=== PATIENT | female | born 1965 | race Caucasian/White ===

== ENCOUNTER 2016-04-04 07:15 | Outpatient (CLI) | payer MEDICARE, MEDICAID ==
[~2016-04-04] VITALS: Ht 166.4 cm; Wt 83.9 kg
[~2016-04-04 07:15] MED LIST: ACHD5005 PO; ADDR10T PO; ALBU17AE23 IH; ALBU17AE23 INH; ALPR1T PO; ALPR1TAB2 PO; ALPR2TAB2 PO; AMIT100T2 PO; AMOX-358 PO; AMPH15TA PO; ARIP5TAB12 PO; ARIP5TAB20 PO; ATOR10TA PO; ATOR80TA PO; BSP10T PO; BUPR300T PO; CEFD300C3 PO; CELE200C PO; CEPH500C PO; CIPR-225 PO; CLCX200C PO; CLOT15CR6 TOP; CPR500T PO; CYCL-97 PO; CYCL10TA9 PO; DEXL30CA2 PO; DEXL60CA PO; DEXT10TA9 PO; DIAZ10TA PO; DIAZ5TAB3; DULO60CA58 PO; DULO60CA6 PO; ELAVIL; FAMO20TA5 PO; FEXO180T PO; FEXO30TA17 PO; FLC100T1 PO; FLEXER; FLUT1DIS26 IH; FURO40TA4 PO; GBPN100C PO; GBPN600T PO; HYDR-2962 PO; HYDR-34 PO; HYDR-3720 PO; HYDR-3820 PO; HYDR1TAB3 PO; IBUP-1780 PO; LACT10SO63 PO; LD5PT; LD5PT TOP; LEVO125T6 PO; LEVO137T24 PO; LEVO200T6 PO; LEVO500T69 PO; LIPA1CAP67 PO; LORA10TA2 PO; LUBI24CA PO; LVT.15T PO; MECL-106 PO; MECL25TA56 PO; METH12DI SQ; METH4TAB PO; METO-354 PO; METO5TAB79 PO; METR500T21 PO; MTF500T PO; MTL5T PO; NF-ESOM40C PO; NF-SOLIF5T PO; NITR-65 PO; ONDA8TAB13 PO; ONDA8TAB9 PO; ONDAN4ODT PO; ORPH100T PO; OXYC10TA63 PO; PHEN-640 PO; PNT40TEC PO; POLY119P4 PO; POLY17PO23 PO; POTA10CA43 PO; PRD20T PO; PREG150C PO; PRM25T PO; SCR1T1 PO; SENN-1 PO; SUCR1TAB36 PO; SULF1TAB35 PO; SUMA100T2 PO; SUMA100T3 PO; TRAM50TA2 PO; TRAZ100T92 PO; VITAMIN D PO; ZLP10T PO
--- OUTSIDE RECORDS SUMMARY | 2016-04-04 07:19 | XMS REPORT | Continuity of Care Document ---
Author Author [facility] Organization [facility] Address Unknown Phone Unavailable Care Team Providers Care Soccer Coach Name Role Phone Jocelin Bean PCP [phone] Source Comments Some departments are not documenting in the electronic medical record. If you do not see the information that you expected, contact Release of Information in the Health Information Management department at [phone] for further assistance in locating additional records.[facility] Active Allergies and Adverse Reactions Allergen Noted Date Severity Reactions Comments Codeine 01/30/2010 UNKNOWN Meprozine 01/30/2010 AGITATION Current Medications Prescription Sig. Disp. Refills Start End Date Status Date levothyroxine (SYNTHROID) Take 137 mg by mouth Active 137 mcg PO tablet Daily. eszopiclone (LUNESTA) 3 Take 3 mg by mouth At Active mg PO tablet Bedtime Daily. metoclopramide (REGLAN) Take 10 mg by mouth Four Active 10 mg PO tablet Times Daily. lubiprostone (AMITIZA) 24 Take 24 mcg by mouth Active mcg PO Cap Twice Daily With Meals. cyclobenzaprine Take 10 mg by mouth Three Active (FLEXERIL) 10 mg PO Times Daily as needed. tablet alprazolam (XANAX) 1 mg Take 1 mg by mouth Daily. Active PO tablet fexofenadine(+) (ROD) Take 180 mg by mouth Active 180 mg PO tablet Twice Daily. buPROPion XL (+) Take 300 mg by mouth Active (WELLBUTRIN XL) 300 mg PO Every Morning. tablet Hydrocodone-Acetaminophen Take 1 Tab by mouth. Active 10-660 mg PO Tab Every 4-6 hours as needed amitriptyline (ELAVIL) Take 100 mg by mouth At Active 100 mg PO tablet Bedtime Daily. lactulose(+) (KRISTALOSE) Take 10 g by mouth Three Active 10 gram PO packet Times Daily. Polyoxyethylene Ether Use as directed. Active MISC Powd lidocaine (LIDODERM) 5 % Apply 1 Patch to top of Active TP topical patch skin as directed Every 24 Hours. albuterol 0.5% (VENTOLIN) Inhale 2.5 mg solution as Active 5 mg/mL IN nebulizer directed Every 4 Hours as solution needed. methylPREDNISolone Take 4 mg by mouth Once. Active (MEDROL) 4 mg PO Tab electrolyte GUT PEG Take as directed for 1 Bottle 0 04/20/19 Active (NULYTELY) 420 gram solr colon prep split dose. 15 oral solution Active Problems Not on file Social History Tobacco Use Types Packs/Day Years Used Date Current Every Day Smoker Cigarettes 1 26 Alcohol Use Drinks/Week oz/Week Comments No Plan of Care Health Maintenance Due Date Last Done Comments Physical (Comprehensive) 09/17/1970 Exam Pertussis Vaccine 09/17/1974 Tetanus Vaccine 09/17/1980 Cervical Cancer Screening 09/17/1984 Breast Cancer Screening 2003 Influenza Vaccine 11/29/2015 Colorectal Cancer 12/20/2019 12/19/2009 Screening Results from Last 3 Months Not on file
[2016-04-04] MEDS ORDERED: LIDOCAINE 1% INJ 20 ML (XYLOCAINE) VIAL ONE (07:21)
[2016-04-04] MEDS ORDERED: TRIAMCINOLONE ACET (KENALOG-40) 40 MG/ML 1 ML VIAL ONE ×2 (07:21→07:59)
[2016-04-04] MEDS ORDERED: BUPIVACAINE 0.25% 30 ML (SENSORCAINE) VIAL ONE (07:21)
[2016-04-04 07:38] VITALS: BP 108/82
[2016-04-04 08:25] VITALS: BP 103/76
--- NOTE | 2016-04-04 13:22 | Pain Medicine-Procedure ---
Procedure Pre-Op/Post-Op Diagnosis Diagnosis: disc disorder with radiculopathy, lumbar Indications for Operation Low back pain and hip pain Attending Surgeon Tyrell Procedure Date of Service: Apr 04, 2016 PROCEDURE: Caudal Epidural Steroid Injection with catheter and bilateral sacroiliac joint injections under Flouroscopic Guidance PROCEDURE NOTE: After obtaining written informed consent patient was taken to the procedure room. Vital signs were monitored through out the procedure. A time out was performed. The patient was placed in the prone position on fluoroscopy table. The lower back above the caudal space was prepped with chloraprep and draped in the usual sterile fashion. The skin over the sacral hiatus was identified under fluoroscopic guidance and infiltrated with 1% lidocaine for local anesthesia via 25 gauge needle. An 17-gauge epimed needle was used to access the epidural space under fluoroscopic guidance and was then advanced into the epidural space under fluoroscopic guidance in the AP view. The epimed catheter was then advanced under flourospopic guidance to the L5-S1 interspace. There was no paresthesia with catheter placement. After negative aspiration 1 cc of the contrast dye was injected through the needle with good spread of the medication in the epidural space at the appropriate levels. Again, after negative aspiration, 80 mg of kenalog with 2 cc of 0.25% marcaine and 2 mL's of preservative free normal saline was injected. There was no evidence of CSF, paresthesia or heme during the procedure. The catheter and needle were withdrawn as a unit and the tip was noted to be intact upon removal. Skin was cleaned and a sterile dressing was applied. Attention was then directed to the right sacroiliac joint which was identified under fluoroscopic guidance. The skin overlying the posterior inferior one third of the sacroiliac joint was anesthetized with 1 percent lidocaine and a 22 -gauge 3-1/2 inch needle was inserted and advanced into the joint. Following negative aspiration a total of 20 mg of Kenalog and 2 mL of 0.25 percent bupivacaine was injected. Needle was flushed with lidocaine and removed. Attention was then directed to the left sacroiliac joint were the same procedure was performed and the same solution was injected. Sterile bandages were applied. Patient tolerated the procedures well with no apparent complications. Complications None FLORIN JUNG MD Apr 04, 2016 1:22 pm
== END 2016-04-04 08:27 ==
LOC: CARD 07:15
PROVIDERS: ATTEND Pain Medicine Pain Medicine
DX: M53.3 Sacrococcygeal disorders, not elsewhere classified (principal); M51.16 Intervertebral disc disorders with radiculopathy, lumbar region; G89.4 Chronic pain syndrome
CPT/HCPCS: 27096; 62323

== ENCOUNTER → 2016-07-08 | Outpatient (CLI) | payer MEDICARE, MEDICAID ==
[2016-07-08 14:26] LABS: THYROID STIMULATING HORMONE 29.23 UIU/ML (0.35-4.94)
== END ==
LOC: LAB 13:26
PROVIDERS: ATTEND Family Medicine
DX: E03.9 Hypothyroidism, unspecified (principal)
CPT/HCPCS: 36415; 84439; 84443

== ENCOUNTER 2016-11-10 12:08 | Observation (INO) | payer MEDICARE, MEDICAID ==
[~2016-11-10] VITALS: Ht 165.1 cm; Wt 87.2 kg
[2016-11-10 12:15] VITALS: BP 124/81
--- OUTSIDE RECORDS SUMMARY | 2016-11-10 12:55 | XMS REPORT | Clinical Summary ---
Author Author [facility] Organization [facility] Address Unknown Phone Unavailable Care Team Providers Care Web Analytics Developer Name Role Phone PCP Unavailable Source Comments Some departments are not documenting in the electronic medical record. If you do not see the information that you expected, contact Release of Information in the Health Information Management department at [phone] for further assistance in locating additional records.[facility] Allergies Active Allergy Reactions Severity Noted Date Comments Codeine UNKNOWN 01/30/2010 Meperidine-Promethazine AGITATION 01/30/2010 Current Medications Prescription Sig. Disp. Refills Start [...] 26 Alcohol Use Drinks/Week oz/Week Comments No Sex Assigned at Date Recorded Not on file Last Filed Vital Signs Not on file Plan of Treatment Health Maintenance Due Date Last Done Comments HEPATITIS C SCREENING 1963 PHYSICAL (COMPREHENSIVE) 09/17/1970 EXAM PERTUSSIS VACCINE 09/17/1974 TETANUS VACCINE 09/17/1980 CERVICAL CANCER SCREENING 09/17/1993 BREAST CANCER SCREENING 2003 INFLUENZA VACCINE 11/28/2016 COLORECTAL CANCER 12/20/2019 12/19/2009 SCREENING Results Not on filefrom Last 3 Months
--- OUTSIDE RECORDS SUMMARY | 2016-11-10 12:59 | XMS REPORT ---
Author Author FLORIN GRAHAM Organization [employer] Address Unknown Phone Unavailable Care Team Providers Care Transfer Worker Name Role Phone FLORIN GRAHAM CP Unavailable Allergies, Adverse Reactions, Alerts Substance Reaction Event Type Codeine Sulfate Info Not Available Drug Allergy Problems Problem Type Condition Code Onset Dates Condition Status Assessment Dental examination Z01.20 Active Medications Medication Code System Code Instructions Start Date End Date Status Dosage Creon [facility] [address]-35 not defined protonix NDC 0 not defined Alprazolam [facility] [address]-57 [place] [address]-41 not defined Levothroid NDC 0 not defined Abilify [facility] [address]-30 not defined Hydrocod Polst-Chlorphen Polst NDC 0 not defined Vit D-Vit E-Safflower Oil NDC 0 not defined Ondansetron [facility] [address]-86 [place] [address]-69 [place] [address]-59 not defined Procedures Procedure Coding System Code Date RESIN COMPOS - 3 SURFACES ANTERIOR CPT-4 D2332 Jan 18, 2015 PULP CAP - DIRECT CPT-4 D3110 Jan 18, 2015 RESIN COMPOS - 3 SURFACES ANTERIOR CPT-4 D2332 Jan 18, 2015 Vital Signs Date/Time: Jan 18, 2015 Blood Pressure Diastolic 75 mmHg Blood Pressure Systolic 110 mmHg Results No Known Results Summary Purpose [employer] Submission
--- OUTSIDE RECORDS SUMMARY | 2016-11-10 12:59 | XMS REPORT ---
Author Author FLORIN GRAHAM Organization [employer] Address Unknown Phone Unavailable Care Team Providers Care Scientific Laboratory Supervisor Name Role Phone FLORIN GRAHAM CP Unavailable Allergies, Adverse Reactions, Alerts Substance Reaction Event Type Codeine Sulfate Info Not Available Drug Allergy Problems Problem Type Condition Code Onset Dates Condition Status Assessment Dental examination Z01.20 Active Medications Medication Code System Code Instructions Start Date End Date Status Dosage Levothroid NDC 0 [place] [address]-22 not defined Hydrocod Polst-Chlorphen Polst NDC 0 [place] [address]-43 not defined protonix NDC 0 not defined Abilify [facility] [address]-23 [place] [address]-01 not defined Vit D-Vit E-Safflower Oil NDC 0 not defined Mecasermin [facility] [address]-26 [place] [address]-09 [place] [address]-41 not defined Procedures Procedure Coding System Code Date RESIN COMPOS - 3 SURFACES ANTERIOR CPT-4 D2332 October 10, 2015 INTRAORL-PERIAPICAL 1 FILM 80164 CPT-4 D0220 October 10, 2015 Vital Signs Date/Time: October 10, 2015 Blood Pressure Diastolic 66 mmHg Blood Pressure Systolic 98 mmHg Results No Known Results Summary Purpose [employer] Submission
--- OUTSIDE RECORDS SUMMARY | 2016-11-10 12:59 | XMS REPORT ---
Author Author FLORIN GRAHAM Organization [employer] Address Unknown Phone Unavailable Care Team Providers Care Machine Binding Folder Name Role Phone FLORIN GRAHAM CP Unavailable Allergies No Known Allergies Problems Problem Type Condition ICD-9 Code Onset Dates Condition Status Assessment Dental examination V72.2 Active Medications No Known Medications Procedures Procedure Coding System Code Date Billing Notes on claim CPT-4 EC109 September 26, 2014 Results No Known Results Summary Purpose [employer] Submission
--- OUTSIDE RECORDS SUMMARY | 2016-11-10 13:00 | XMS REPORT ---
Author Author JAEL ARDON Organization [employer] Address Unknown Phone Unavailable Care Team Providers Care Termite Control Technician Name Role Phone JAEL ARDON CP Unavailable Allergies No Known Allergies Problems No Known Problems Medications No Known Medications Results No Known Results Summary Purpose [employer] Submission
--- OUTSIDE RECORDS SUMMARY | 2016-11-10 13:02 | XMS REPORT ---
Author Author JAEL ARDON [facility] Address Unknown Care Team Providers Care Unisaw Operator Name Role Phone JAEL ARDON Unavailable PROBLEMS Type Condition ICD9-CM Code COT35-MG Code Onset Dates Condition Status SNOMED Code Assessment Dental examination Z01.20 13 Nov, 2015 Active [id number] ALLERGIES Unknown Allergies SOCIAL HISTORY No smoking Hx information available PLAN OF CARE VITAL SIGNS MEDICATIONS Unknown Medications RESULTS No Results PROCEDURES Procedure Date Ordered Related Diagnosis Body Site Billing Notes on claim Dec 11, 2015 IMMUNIZATIONS No Known Immunizations
[2016-11-10 13:44] LABS: BASOPHILS % (AUTO) 0 % (0-10); EOSINOPHILS % (AUTO) 0 % (0-10); LYMPHOCYTES # (AUTO) 2.2 X 10^3 (1.0-4.0); LYMPHOCYTES % (AUTO) 23 % (12-44); MEAN CORPUSCULAR HEMOGLOBIN 29 PG (25-34); MEAN CORPUSCULAR HGB CONC 35 G/DL (32-36); MEAN CORPUSCULAR VOLUME 83 FL (80-99); MONOCYTES # (AUTO) 0.5 X 10^3 (0.0-1.0); MONOCYTES % (AUTO) 5 % (0-12); NEUTROPHILS # (AUTO) 6.8 X 10^3 (1.8-7.8); NEUTROPHILS % (AUTO) 71 % (42-75); PLATELET COUNT 243 10^3/uL (130-400); RED BLOOD COUNT 5.74 10^6/uL (4.35-5.85); RED CELL DISTRIBUTION WIDTH 13.1 % (10.0-14.5); WHITE BLOOD COUNT 9.5 10^3/uL (4.3-11.0)
[2016-11-10] MEDS ORDERED: ONDANSETRON 4 MG/2 ML (SDV) Z0FRAN ONE (13:54)
[2016-11-10] MEDS: NS IV 1000 ML 1,000 ML IV SCH ×2 (14:04→20:49)
[2016-11-10] MEDS: ONDANSETRON 4 MG/2 ML (SDV) Z0FRAN IV PRN ×2 (14:05→20:49)
[2016-11-10 14:09] LABS: ALANINE AMINOTRANSFERASE 10 U/L (0-55); ALBUMIN 3.9 GM/DL (3.2-4.5); AMYLASE 38 U/L (25-125); ANION GAP 17 MMOL/L (5-14); ASPARTATE AMINO TRANSFERASE 11 U/L (5-34); BILIRUBIN,TOTAL 0.4 MG/DL (0.1-1.0); BLOOD UREA NITROGEN 8 MG/DL (7-18); BUN/CREATININE RATIO 10; CALCIUM 9.4 MG/DL (8.5-10.1); CARBON DIOXIDE 14 MMOL/L (21-32); CHLORIDE 99 MMOL/L (98-107); CREATININE SERUM 0.83 MG/DL (0.60-1.30); GFR ESTIMATED > 60; GLUCOSE 313 MG/DL (70-105); LIPASE 18 U/L (8-78); MAGNESIUM 1.4 MG/DL (1.8-2.4); POTASSIUM 3.6 MMOL/L (3.6-5.0); SODIUM 130 MMOL/L (135-145); TOTAL PROTEIN 7.1 GM/DL (6.4-8.2)
[2016-11-10 14:13] LABS: BILIRUBIN,URINE NEGATIVE (NEGATIVE); KETONES,URINE 4+ (NEGATIVE); LEUKOCYTE ESTERASE ,URINE NEGATIVE (NEGATIVE); NITRITE,URINE NEGATIVE (NEGATIVE); PH,URINE 5 (5-9); PROTEIN,URINE 2+ (NEGATIVE); UROBILINOGEN,URINE NORMAL (NORMAL)
[2016-11-10] MEDS ORDERED: CATHETER FLUSH 10 ML SYR IV PRN (14:15)
[2016-11-10] MEDS: inSUlin (REGULAR) HUMAN 1 UNIT/0.01 ML (CHARGE PER UNIT) SC SCH ×3 (14:19→20:50)
[2016-11-10] MEDS ORDERED: NALO25TA PO (14:25)
[2016-11-10] MEDS ORDERED: AMPH20CA PO (14:25)
[2016-11-10] MEDS ORDERED: DEXL60CA PO (14:25)
[2016-11-10] MEDS ORDERED: CYCL10TA9 PO (14:25)
[2016-11-10] MEDS ORDERED: BUSP10TA95 PO (14:25)
[2016-11-10] MEDS ORDERED: TRAZ150T72 PO (14:25)
[2016-11-10 14:30] LABS: THYROID STIMULATING HORMONE 0.04 UIU/ML (0.35-4.94)
[2016-11-10 16:20] VITALS: BP 121/84
[2016-11-10] MEDS ORDERED: KCL 20 MEQ TAB (K-DUR) PO NR (17:30)
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
[2016-11-10] MEDS: MAGNESIUM 1 GM/100 ML IVPB 100 ML IV SCH ×2 (17:51→19:39)
[2016-11-10] MEDS: HYDROcodone/APAP 10 MG/325 MG (LORTAB) TAB PO PRN ×2 (17:59→20:50)
[2016-11-10 19:55] VITALS: BP 110/74
[2016-11-10] MEDS: busPIRone 10 MG (BUSPAR) TAB PO SCH (20:49)
[2016-11-10] MEDS: traZODone 150 MG (DESYREL) TABLET PO SCH (20:49)
[2016-11-11] VITALS (7 sets, daily range): BP systolic 94–114; BP diastolic 54–77
[2016-11-11] MEDS: ONDANSETRON 4 MG/2 ML (SDV) Z0FRAN IV PRN ×3 (02:29→21:06)
[2016-11-11] MEDS: HYDROcodone/APAP 10 MG/325 MG (LORTAB) TAB PO PRN ×2 (02:29→09:42)
[2016-11-11] MEDS: NS IV 1000 ML 1,000 ML IV SCH ×3 (02:46→17:57)
[2016-11-11 06:18] LABS: ANION GAP 12 MMOL/L (5-14); BLOOD UREA NITROGEN 10 MG/DL (7-18); BUN/CREATININE RATIO 16; CALCIUM 8.3 MG/DL (8.5-10.1); CARBON DIOXIDE 16 MMOL/L (21-32); CHLORIDE 106 MMOL/L (98-107); CREATININE SERUM 0.64 MG/DL (0.60-1.30); GFR ESTIMATED > 60; GLUCOSE 254 MG/DL (70-105); MAGNESIUM 1.7 MG/DL (1.8-2.4); POTASSIUM 3.7 MMOL/L (3.6-5.0); SODIUM 134 MMOL/L (135-145)
[2016-11-11] MEDS: LEVOTHYROXINE 150 MCG (LEVOTHROID) TAB PO SCH (06:19)
[2016-11-11] MEDS: KCL 20 MEQ TAB (K-DUR) PO SCH (06:19)
[2016-11-11] MEDS: PANTOPRAZOLE 40 MG (PROTONIX) TAB PO SCH (06:19)
[2016-11-11] MEDS: LIPASE/AMYLASE/PROTEASE (PANCRELIPASE) 5,000 UNITS CAP PO SCH ×3 (06:20→17:19)
[2016-11-11] MEDS: inSUlin (REGULAR) HUMAN 1 UNIT/0.01 ML (CHARGE PER UNIT) SC SCH ×4 (06:20→21:02)
[2016-11-11] MEDS: busPIRone 10 MG (BUSPAR) TAB PO SCH ×2 (08:24→21:02)
[2016-11-11] MEDS: ARIPIPRAZOLE 10 MG (ABILIFY) TAB PO SCH (08:25)
[2016-11-11] MEDS: DULoxetine 30 MG (CYMBALTA) CAP PO SCH (08:25)
[2016-11-11] MEDS ORDERED: GLIMEPIRIDE 1 MG (AMARYL) TAB PO NR (08:45)
[2016-11-11] MEDS ORDERED: NON-FORMULARY MEDICATION 1 EA EA (Dexlansoprazole (Dexilant) 60 MG) PO SCH (09:00)
[2016-11-11] MEDS ORDERED: NON-FORMULARY MEDICATION 1 EA EA (Duloxetine HCl 60 MG) PO SCH (09:00)
[2016-11-11] MEDS ORDERED: NON-FORMULARY MEDICATION 1 EA EA (Aripiprazole 5 MG) PO SCH (09:00)
[2016-11-11] MEDS: metFORMIN XR 500 MG (GLUCOPHAGE XR) TAB PO SCH ×2 (09:42→17:08)
[2016-11-11] MEDS: MAGNESIUM 1 GM/100 ML IVPB 100 ML IV SCH ×2 (09:43→10:49)
[2016-11-11] MEDS: Naloxegol Oxalate (Movantik) 25 MG) PO SCH ×2 (21:01→21:03)
[2016-11-11] MEDS: traZODone 150 MG (DESYREL) TABLET PO SCH (21:02)
[2016-11-12] MEDS: NS IV 1000 ML 1,000 ML IV SCH ×3 (00:52→06:16)
[2016-11-12 03:40] VITALS: BP 106/60
[2016-11-12] MEDS: LIPASE/AMYLASE/PROTEASE (PANCRELIPASE) 5,000 UNITS CAP PO SCH ×2 (06:13→11:37)
[2016-11-12] MEDS: LEVOTHYROXINE 150 MCG (LEVOTHROID) TAB PO SCH (06:13)
[2016-11-12] MEDS: metFORMIN XR 500 MG (GLUCOPHAGE XR) TAB PO SCH (06:13)
[2016-11-12] MEDS: inSUlin (REGULAR) HUMAN 1 UNIT/0.01 ML (CHARGE PER UNIT) SC SCH ×2 (06:13→11:37)
[2016-11-12] MEDS: KCL 20 MEQ TAB (K-DUR) PO SCH (06:13)
[2016-11-12] MEDS ORDERED: GLIMEPIRIDE 1 MG (AMARYL) TAB PO SCH (06:30)
[2016-11-12] MEDS: PANTOPRAZOLE 40 MG (PROTONIX) TAB PO SCH (06:39)
[2016-11-12 07:27] LABS: ANION GAP 11 MMOL/L (5-14); BLOOD UREA NITROGEN 5 MG/DL (7-18); BUN/CREATININE RATIO 9; CALCIUM 8.4 MG/DL (8.5-10.1); CARBON DIOXIDE 20 MMOL/L (21-32); CHLORIDE 108 MMOL/L (98-107); CREATININE SERUM 0.58 MG/DL (0.60-1.30); GFR ESTIMATED > 60; GLUCOSE 192 MG/DL (70-105); POTASSIUM 3.4 MMOL/L (3.6-5.0); SODIUM 139 MMOL/L (135-145)
[2016-11-12 08:00] VITALS: BP 95/64
[2016-11-12] MEDS: busPIRone 10 MG (BUSPAR) TAB PO SCH (09:36)
[2016-11-12] MEDS: DULoxetine 30 MG (CYMBALTA) CAP PO SCH (09:37)
[2016-11-12] MEDS: ARIPIPRAZOLE 10 MG (ABILIFY) TAB PO SCH (09:37)
[2016-11-12 12:00] VITALS: BP 124/86
[2016-11-12] MEDS ORDERED: METF500T8 PO (12:52)
[2016-11-12] MEDS ORDERED: GLMP1T PO (12:52)
[2016-11-12] MEDS ORDERED: LEVO175T5 PO (12:52)
[2016-11-12] MEDS ORDERED: [UNRECOGNIZED DRUG - CODE] MC (12:57)
[2016-11-12] MEDS ORDERED: BLOO-367 MC (12:59)
--- NOTE | 2016-11-12 13:00 | Discharge Inst-Simple/Standard ---
Discharge Inst-Standard Discharge Medications New, Converted or Re-Newed RX: Transmitted to Pharmacy Patient Instructions/Follow Up Plan of Care/Instructions/FU: Fwup in 2 weeks Activity as Tolerated: Yes Discharge Diet: ADA Diet Planned Outpatient Orders/Ref. Diabetes Education RAZA HARRIS DO Nov 12, 2016 12:59
[2016-11-12 14:51] VITALS: BP 124/86
== END 2016-11-12 13:40 | disposition home or self-care (01) ==
LOC: INTOOBSV 12:15 → 4TH 12:15
PROVIDERS: ADMIT Family Medicine; ATTEND Family Medicine
DX: E11.65 Type 2 diabetes mellitus with hyperglycemia (principal); E87.1 Hypo-osmolality and hyponatremia; E83.42 Hypomagnesemia; E87.2 Acidosis; R00.0 Tachycardia, unspecified; E03.9 Hypothyroidism, unspecified; J44.9 Chronic obstructive pulmonary disease, unspecified; F17.210 Nicotine dependence, cigarettes, uncomplicated; Z79.899 Other long term (current) drug therapy
CPT/HCPCS: 36415; 80048; 80053; 81000; 82150; 82962; 83036; 83690; 83735; 84439; 84443; 85025; 99211; G0378

== ENCOUNTER 2016-12-08 17:43 | Outpatient (RCR) | payer MEDICARE, MEDICAID ==
[~2016-12-08 17:43] MED LIST changes: +AMPH20CA PO; +BLOO-367 MC; +BUSP10TA95 PO; +GLMP1T PO; +LEVO175T5 PO; +METF500T8 PO; +NALO25TA PO; +TRAZ150T72 PO; +[UNRECOGNIZED DRUG - CODE] MC
== END 2016-12-27 02:34 | disposition home or self-care (01) ==
LOC: DSME 17:43
PROVIDERS: ATTEND Family Medicine
DX: E11.9 Type 2 diabetes mellitus without complications (principal)

== ENCOUNTER 2017-02-22 10:02 | Emergency (ER) | payer MEDICARE, MEDICAID ==
[~2017-02-22] VITALS: Ht 165.1 cm; Wt 68.0 kg
--- OUTSIDE RECORDS SUMMARY | 2017-02-22 10:08 | XMS REPORT | Clinical Summary ---
Author Author [facility] Organization [facility] Address Unknown Phone Unavailable Care Team Providers Care Marketing Strategist Name Role Phone PCP Unavailable Source Comments Some departments are not documenting in the electronic medical record. If you do not see the information that you expected, contact Release of Information in the Health Information Management department at [phone] for further assistance in locating additional records.[facility] Allergies Active Allergy Reactions Severity Noted Date [...] 09/17/1993 BREAST CANCER SCREENING 2003 INFLUENZA VACCINE 10/28/2016 COLORECTAL CANCER 12/20/2019 12/19/2009 SCREENING Results Not on filefrom Last 3 Months
--- OUTSIDE RECORDS SUMMARY | 2017-02-22 10:12 | XMS REPORT ---
Author Author JAEL ARDON [facility] Address Unknown Care Team Providers Care System Configuration Specialist Name Role Phone JAEL ARDON Unavailable PROBLEMS Type Condition ICD9-CM Code [id number] Code Onset Dates Condition Status SNOMED Code Problem Encounter for dental examination Z01.20 Active [id number] ALLERGIES Unknown Allergies SOCIAL HISTORY No smoking Hx information available PLAN OF CARE VITAL SIGNS MEDICATIONS Unknown Medications RESULTS No Results PROCEDURES Procedure Date Ordered Related Diagnosis Body Site Billing Notes on claim Feb 26, 2016 IMMUNIZATIONS No Known Immunizations
--- OUTSIDE RECORDS SUMMARY | 2017-02-22 10:13 | XMS REPORT ---
Author Author ANNABEL CUMM[facility] Organization [facility] Address [address] [place] [address] Care Team Providers Care Media Technician Name Role Phone EMILIANO ANNABEL Unavailable PROBLEMS Type Condition ICD9-CM Code FNV26-ML Code Onset Dates Condition Status SNOMED Code Problem Encounter for dental examination Z01.20 Active [id number] ALLERGIES Substance Reaction Event Type Date Status Codeine Sulfate Unknown Drug Allergy Apr, Active compazine Unknown Non Drug Allergy Apr, Active SOCIAL HISTORY Never Assessed PLAN OF CARE Activity Details Follow Up First Available Reason:Restorative 1 hour VITAL SIGNS Blood pressure systolic 96 mmHg 2016-05-21 Blood pressure diastolic 67 mmHg 2016-05-21 MEDICATIONS Medication Instructions Dosage Frequency Start Date End Date Duration Status Abilify Active Cymbalta Active Creon Active Trazodone HCl Active Dexilant 60 MG Orally Once a day 1 capsule 24h Active BuSpar Active Levothroid Active Hydrocod Polst-Chlorphen Polst Active Adderall 20 MG Orally Once a day 1 tablet in the morning 24h Active Vit D-Vit E-Safflower Oil Active Alprazolam Active RESULTS No Results PROCEDURES Procedure Date Ordered Result Body Site TOPICAL FLUORIDE VARNISH May 21, 2016 PERIODIC ORAL EXAMINATION May 21, 2016 INTRAORL-PERIAPICAL 1 FILM 11533 May 21, 2016 BITEWINGS - TWO FILMS May 21, 2016 BITEWING - SINGLE FILM May 21, 2016 PROPHYLAXIS - ADULT May 21, 2016 INTRAORL-PERIAPICAL EA ADD FILM May 21, 2016 INTRAORL-PERIAPICAL EA ADD FILM May 21, 2016 INTRAORL-PERIAPICAL EA ADD FILM May 21, 2016 INTRAORL-PERIAPICAL EA ADD FILM May 21, 2016 IMMUNIZATIONS No Known Immunizations MEDICAL (GENERAL) HISTORY Type Description Date Medical History COPD Medical History Thyroid Medical History Arthritis Medical History Back trouble Medical History Head neck back trouble Surgical History Appendix Surgical History Back Surgical History Sinus Surgical History Wrist Surgical History Partial Hysterectomy Surgical History tosils Surgical History gallbladder Surgical History kidney stone Hospitalization History Hospitalization for surgery only
--- OUTSIDE RECORDS SUMMARY | 2017-02-22 10:14 | XMS REPORT ---
Author Author SUSSY Rico Organization [facility] Address Unknown Care Team Providers Care Dynamite Cartridge Crimper Name Role Phone SUSSY Rico Unavailable PROBLEMS Type Condition ICD9-CM Code [id number] Code Onset Dates Condition Status SNOMED Code Problem Encounter for dental examination Z01.20 Active 101930269 ALLERGIES Substance Reaction Event Type Date Status Codeine Sulfate Unknown Drug Allergy Apr, Active compazine Unknown Non Drug Allergy Apr, Active SOCIAL HISTORY Never Assessed PLAN OF CARE Activity Details Follow Up prn Reason:usha/hygiene VITAL SIGNS Blood pressure systolic 118 mmHg 2016-05-21 Blood pressure diastolic 85 mmHg 2016-05-21 MEDICATIONS Medication Instructions Dosage Frequency Start Date End Date Duration Status Cymbalta Active Creon Active BuSpar Active Alprazolam Active Trazodone HCl Active Levothroid Active Hydrocod Polst-Chlorphen Polst Active Adrenal Active Abilify Active Vit D-Vit E-Safflower Oil Active RESULTS No Results PROCEDURES Procedure Date Ordered Result Body Site LTD ORAL EVALUATION - PROBLEM FOCUS May 21, 2016 INTRAORL-PERIAPICAL 1 FILM [id number] May 21, 2016 BITEWING - SINGLE FILM May 21, 2016 INTRAORL-PERIAPICAL EA ADD [...]
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
--- NOTE | 2017-02-22 11:23 | Diagnostic Imaging Report ---
INDICATION: Right wrist pain after a fall 2 views of the right wrist shows no fracture, dislocation or other acute bony abnormality. IMPRESSION: No acute abnormality is seen. Dictated by: Dictated on workstation # [id number]
[2017-02-22 11:45] VITALS: BP 132/87
== END 2017-02-22 11:45 | disposition home or self-care (01) ==
LOC: EDUNIT# 10:02 → ER 10:04
DX: S60.211A Contusion of right wrist, initial encounter (principal); F32.9 Major depressive disorder, single episode, unspecified; F41.9 Anxiety disorder, unspecified; E03.9 Hypothyroidism, unspecified; J44.9 Chronic obstructive pulmonary disease, unspecified; E11.40 Type 2 diabetes mellitus with diabetic neuropathy, unspecified; K21.9 Gastro-esophageal reflux disease without esophagitis; Z79.84 Long term (current) use of oral hypoglycemic drugs; Z90.710 Acquired absence of both cervix and uterus; Z87.442 Personal history of urinary calculi; Z85.41 Personal history of malignant neoplasm of cervix uteri; Z90.49 Acquired absence of other specified parts of digestive tract; Z77.22 Contact with and (suspected) exposure to environmental tobacco smoke (acute) (chronic); W01.0XXA Fall on same level from slipping, tripping and stumbling without subsequent striking against object, initial encounter; Z87.828 Personal history of other (healed) physical injury and trauma
CPT/HCPCS: 73100; 99282

== ENCOUNTER 2017-04-26 18:26 | Emergency (ER) | payer MEDICARE, MEDICAID ==
[~2017-04-26] VITALS: Ht 165.1 cm; Wt 65.8 kg
--- OUTSIDE RECORDS SUMMARY | 2017-04-26 18:32 | XMS REPORT | Clinical Summary ---
Author Author [facility] Organization [facility] Address Unknown Phone Unavailable Care Team Providers Care Remote Sensing Engineer Name Role Phone Jocelin Bean MD PCP Jorge Christopher Unavailable Unavailable Eloise Rand Unavailable Unavailable Source Comments Some departments are not documenting in the electronic medical record. If you do not see the information that you expected, contact Release of Information in the Health Information Management department at [phone] for further assistance in locating additional records.[facility] Allergies Active Allergy Reactions Severity Noted [...]
--- OUTSIDE RECORDS SUMMARY | 2017-04-26 18:39 | XMS REPORT | Continuity of Care Document ---
Author Author [facility] Organization [facility] Address Unknown Phone Unavailable Allergies Active Description Code Type Severity Reaction Onset Reported/Identified Relationship to Patient Clinical Status Yes prochlorperazine [id number] Drug Allergy Mild ANXIETY 12/12/2008 Yes codeine [id number] Drug Allergy Mild ABDOMINAL PAIN 12/26/2010 Medications There is no data. Problems Date Dx Coded Attending Type Code Diagnosis Diagnosed By RAZA HARRIS DO Ot E11.9 TYPE 2 DIABETES MELLITUS WITHOUT COMPLIC 02/27/1444 RAZA HARRIS DO Ot M51.86 OTHER INTERVERTEBRAL DISC DISORDERS, LUM 03/21/2010 Ot 724.5 03/21/2010 Ot 789.00 03/21/2010 Ot 791.9 06/24/2010 Ot 722.91 DISC DIS NEC /NOS-CERV 06/24/2010 Ot V57.1 PHYSICAL THERAPY NEC 07/12/2010 Ot 244.9 HYPOTHYROIDISM NOS 07/12/2010 Ot 276.1 HYPOSMOLALITY 07/12/2010 Ot 276.8 HYPOPOTASSEMIA 07/12/2010 Ot 300.00 ANXIETY STATE NOS 07/12/2010 Ot 305.1 TOBACCO USE DISORDER 07/12/2010 Ot 314.00 ATTN DEFIC NONHYPERACT 07/12/2010 Ot 338.29 OTHER CHRONIC PAIN 07/12/2010 Ot 401.9 HYPERTENSION NOS 07/12/2010 Ot 558.9 NONINF GASTROENTERIT NEC 07/12/2010 Ot 599.0 URIN TRACT INFECTION NOS 07/12/2010 Ot 714.0 RHEUMATOID ARTHRITIS 07/12/2010 Ot 724.2 LUMBAGO 07/12/2010 Ot V58.69 OTH MED,LT, CURRENT USE 11/11/2010 Ot 564.00 UNSPEC CONSTIPATION 11/11/2010 Ot 789.09 ABDOMINAL PAIN, OTHER SPECIFIED SITE 12/27/2010 Ot 244.9 HYPOTHYROIDISM NOS 12/27/2010 Ot 276.51 DEHYDRATION 12/27/2010 Ot 276.8 HYPOPOTASSEMIA 12/27/2010 Ot 300.4 DYSTHYMIC DISORDER 12/27/2010 Ot 305.1 TOBACCO USE DISORDER 12/27/2010 Ot 314.00 ATTN DEFIC NONHYPERACT 12/27/2010 Ot 401.9 HYPERTENSION NOS 12/27/2010 Ot 496 CHR AIRWAY OBSTRUCT NEC 12/27/2010 Ot 558.9 NONINF GASTROENTERIT NEC 12/27/2010 Ot 789.00 ABDOMINAL PAIN, UNSPECIFIED SITE 12/27/2010 Ot 790.6 ABN BLOOD CHEMISTRY NEC 12/27/2010 Ot V58.69 OTH MED,LT, CURRENT USE 02/21/2011 Ot 041.3 KLEBSIELLA PNEUMONIAE 02/21/2011 Ot 244.9 HYPOTHYROIDISM NOS 02/21/2011 Ot 271.3 DISACCHARIDASE DEF/MALAB 02/21/2011 Ot 300.4 DYSTHYMIC DISORDER 02/21/2011 Ot 305.1 TOBACCO USE DISORDER 02/21/2011 Ot 314.00 ATTN DEFIC NONHYPERACT 02/21/2011 Ot 401.9 HYPERTENSION NOS 02/21/2011 Ot 496 CHR AIRWAY OBSTRUCT NEC 02/21/2011 Ot 530.81 ESOPHAGEAL REFLUX 02/21/2011 Ot 535.40 OTH SPECIFIED GASTRITIS,W/O MENTION OF H 02/21/2011 Ot 553.3 DIAPHRAGMATIC HERNIA 02/21/2011 Ot 564.00 UNSPEC CONSTIPATION 02/21/2011 Ot 599.0 URIN TRACT INFECTION NOS 02/21/2011 Ot 722.52 LUMB/ LUMBOSAC DISC DEGEN 02/21/2011 Ot V12.71 PERSONAL HISTORY OF PEPTIC ULCER DISEASE 09/17/2011 Ot 244.9 HYPOTHYROIDISM NOS 09/17/2011 Ot 305.1 TOBACCO USE DISORDER 09/17/2011 Ot 716.90 ARTHROPATHY NOS-UNSPEC 09/17/2011 Ot 717.7 CHONDROMALACIA PATELLAE 09/17/2011 Ot V57.1 PHYSICAL THERAPY NEC 10/29/2011 Ot 244.9 HYPOTHYROIDISM NOS 10/29/2011 Ot 305.1 TOBACCO USE DISORDER 10/29/2011 Ot 716.90 ARTHROPATHY NOS-UNSPEC 10/29/2011 Ot 717.7 CHONDROMALACIA PATELLAE 10/29/2011 Ot 733.92 CHONDROMALACIA 10/29/2011 Ot V74.8 SCREEN- BACTERIAL DIS NEC 03/02/2012 Ot 782.0 SKIN SENSATION DISTURB 03/08/2012 Ot 722.52 LUMB/ LUMBOSAC DISC DEGEN 03/08/2012 Ot V57.1 PHYSICAL THERAPY NEC 06/26/2012 Ot 724.2 LUMBAGO 09/19/2012 TERESA CUETO DO Ot 787.01 NAUSEA WITH VOMITING 09/19/2012 TERESA CUETO DO Ot 789.09 ABDOMINAL PAIN, OTHER SPECIFIED SITE 10/04/2012 EAN LOPEZ, GURMEET Phillips Ot 530.10 ESOPHAGITIS NOS 10/04/2012 EAN LOPEZ, GURMEET Phillips Ot 532.90 DUODENAL ULCER NOS 10/04/2012 EAN LOPEZ, GURMEET Phillips Ot 535.40 OTH SPECIFIED GASTRITIS,W/O MENTION OF H 10/04/2012 EAN LOPEZ, GURMEET Phillips Ot 553.3 DIAPHRAGMATIC HERNIA 10/18/2012 KORTNEY MÉNDEZ Ot 250.00 DIAB QIAN WO COMPL, TYPE II OR UNSPEC TY 10/18/2012 KORTNEY MÉNDEZ Ot 276.51 DEHYDRATION 10/18/2012 KORTNEY MÉNDEZ Ot 300.00 ANXIETY STATE NOS 10/18/2012 KORTNEY MÉNDEZ Ot 305.1 TOBACCO USE DISORDER 10/18/2012 KORTNEY MÉNDEZ Ot 346.90 MIGRAINE UNSPECIFIED W/O INTRACT MGRN W/ 10/18/2012 KORTNEY MÉNDEZ Ot 530.81 ESOPHAGEAL REFLUX 10/18/2012 KORTNEY MÉNDEZ Ot 553.3 DIAPHRAGMATIC HERNIA 10/18/2012 KORTNEY MÉNDEZ Ot 787.01 NAUSEA WITH VOMITING 10/18/2012 KORTNEY MÉNDEZ Ot 787.03 VOMITING ALONE 10/18/2012 KORTNEY MÉNDEZ Ot 789.06 ABDOMINAL PAIN, EPIGASTRIC 10/18/2012 KORTNEY MÉNDEZ Ot V12.71 PERSONAL HISTORY OF PEPTIC ULCER DISEASE 10/18/2012 KORTNEY MÉNDEZ Ot V58.69 OTH MED,LT,CURRENT USE 03/01/2013 ARIS LI DO Ot V57.1 PHYSICAL THERAPY NEC 04/29/2013 DONNA MARCOS MD Ot 599.0 URIN TRACT INFECTION NOS 04/29/2013 DONNA MARCOS MD Ot 780.52 INSOMNIA, UNSPECIFIED 04/29/2013 DONNA MARCOS MD Ot 965.09 POISONING-OPIATES NEC 04/29/2013 DONNA MARCOS MD Ot 967.8 POIS-SEDATIVE/HYPNOT NEC 04/29/2013 DONNA MARCOS MD Ot 969.4 POIS-BENZODIAZEPINE BRYAN 04/29/2013 DONNA MARCOS MD Ot E849.0 ACCIDENT IN HOME 04/29/2013 DONNA MARCOS MD Ot E850.2 ACC POISON-OPIATES NEC 04/29/2013 DONNA MARCOS MD Ot E852.8 ACC POISON-SEDATIVES NEC 04/29/2013 DONNA MARCOS MD Ot E853.2 ACC POISN-BENZDIAZ TRANQ 04/29/2013 DONNA MARCOS MD Ot V58.69 OTH MED,LT,CURRENT USE 05/03/2013 ORENDVINH DO, RAZA S Ot 250.00 DIAB QIAN WO COMPL, TYPE II OR UNSPEC TY 05/03/2013 DOLORESNDVINH DO, RAZA S Ot 305.1 TOBACCO USE DISORDER 05/03/2013 ORENDER DO, RAZA S Ot 530.10 ESOPHAGITIS NOS 05/03/2013 DOLORESNDER DO, RAZA S Ot 535.40 OTH SPECIFIED GASTRITIS,W/O MENTION OF H 05/03/2013 DOLORESNDVINH DO, RAZA S Ot 553.3 DIAPHRAGMATIC HERNIA 05/03/2013 ORENDER DO, RAZA S Ot 599.0 URIN TRACT INFECTION NOS 10/16/2013 KORTNEY MÉNDEZ Ot 244.9 HYPOTHYROIDISM NOS 10/16/2013 KORTNEY MÉNDEZ Ot 250.00 DIAB QIAN WO COMPL, TYPE II OR UNSPEC TY 10/16/2013 KORTNEY MÉNDEZ Ot 300.00 ANXIETY STATE NOS 10/16/2013 KORTNEY MÉNDEZ Ot 305.1 TOBACCO USE DISORDER 10/16/2013 KORTNEY MÉNDEZ Ot 311 DEPRESSIVE DISORDER NEC 10/16/2013 KORTNEY MÉNDEZ Ot 355.9 MONONEURITIS NOS 10/16/2013 KORTNEY MÉNDEZ Ot 530.81 ESOPHAGEAL REFLUX 10/16/2013 KORTNEY MÉNDEZ Ot 564.09 OTHER CONSTIPATION 10/16/2013 KORTNEY MÉNDEZ Ot 716.90 ARTHROPATHY NOS-UNSPEC 10/16/2013 KORTNEY MÉNDEZ Ot 724.3 SCIATICA 10/16/2013 KORTNEY MÉNDEZ Ot 729.5 PAIN IN LIMB 10/16/2013 KORTNEY MÉNDEZ Ot V58.65 LONG-TERM(CURRENT)USE OF STEROIDS 11/28/2013 DONNA MARCOS MD Ot 244.9 HYPOTHYROIDISM NOS 11/28/2013 DONNA MARCOS MD Ot 250.00 DIAB QIAN WO COMPL, TYPE II OR UNSPEC TY 11/28/2013 DONNA MARCOS MD Ot 276.8 HYPOPOTASSEMIA 11/28/2013 DONNA MARCOS MD Ot 288.60 LEUKOCYTOSIS, UNSPECIFIED 11/28/2013 DONNA MARCOS MD Ot 496 CHR AIRWAY OBSTRUCT NEC 11/28/2013 DONNA MARCOS MD Ot 729.1 MYALGIA AND MYOSITIS NOS 11/28/2013 DONNA MARCOS MD Ot V58.69 OTH MED,LT,CURRENT USE 12/08/2013 RAZA HARRIS DO Ot 724.4 LUMBOSACRAL NEURITIS NOS 12/08/2013 RAZA HARRIS DO Ot V57.1 PHYSICAL THERAPY NEC 02/22/2014 RAZA HARRIS DO Ot 276.8 05/17/2014 Ot 553.1 05/17/2014 Ot 564.00 05/17/2014 Ot 553.1 05/17/2014 Ot V72.83 05/17/2014 Ot V74.8 05/17/2014 Ot 518.0 05/17/2014 Ot 564.00 05/17/2014 Ot 789.00 05/17/2014 Ot 782.0 05/17/2014 Ot 782.5 05/17/2014 Ot 785.9 05/17/2014 Ot 789.00 05/17/2014 Ot 564.00 05/17/2014 Ot 789.00 05/17/2014 Ot 722.0 05/17/2014 Ot 782.0 05/17/2014 Ot 790.29 05/17/2014 Ot 298.9 05/17/2014 Ot 368.9 05/17/2014 Ot 473.0 05/17/2014 Ot 780.79 05/17/2014 Ot 790.4 05/17/2014 Ot 787.03 05/17/2014 Ot 789.00 05/17/2014 Ot 790.6 05/17/2014 Ot 564.00 05/17/2014 Ot 564.00 05/17/2014 Ot 789.03 05/17/2014 Ot V13.01 05/17/2014 Ot 729.5 05/17/2014 Ot 729.81 05/17/2014 Ot 719.06 05/17/2014 Ot 719.46 05/17/2014 Ot E000.8 05/17/2014 Ot E849.0 05/17/2014 Ot E888.9 05/17/2014 Ot 717.7 05/17/2014 Ot V72.83 05/17/2014 Ot V74.8 05/17/2014 Ot 268.9 05/17/2014 Ot 719.40 05/17/2014 Ot 780.79 05/17/2014 Ot 717.7 05/17/2014 Ot V72.84 05/17/2014 Ot 723.1 05/17/2014 Ot 715.91 05/17/2014 Ot V72.84 05/17/2014 Ot V74.8 05/17/2014 Ot 268.9 05/17/2014 Ot 780.79 05/17/2014 Ot 782.0 05/17/2014 Ot 784.0 05/17/2014 Ot 784.59 05/17/2014 Ot 790.22 05/17/2014 Ot 244.9 05/17/2014 Ot 300.00 05/17/2014 Ot 401.9 05/17/2014 Ot 719.49 05/17/2014 Ot 729.1 05/17/2014 Ot 790.29 05/17/2014 EAN LOPEZ, GURMEET Phillips Ot V72.84 05/17/2014 RAZA HARRIS DO S Ot 250.00 05/17/2014 RAZA HARRIS DO S Ot 272.4 05/17/2014 RAZA HARRIS DO S Ot 780.79 05/17/2014 ORENDER DO, RAZA S Ot 244.9 05/17/2014 OREND DO, RAZA S Ot 250.00 05/17/2014 ORENDER DO, RAZA S Ot 268.9 05/17/2014 ORENDER DO, RAZA S Ot 272.4 05/17/2014 ORENDER DO, RAZA S Ot 716.90 05/17/2014 [facility], RAZA S Ot 276.8 05/17/2014 [facility] DO, RAZA S Ot 288.50 05/17/2014 [facility] DO, RAZA S Ot 276.8 05/17/2014 DAYRON LOPEZ, NIRAV Dunbar Ot 592.9 05/17/2014 MAGGY DONOVAN Ot 276.8 05/17/2014 [facility] DO, RAZA S Ot 276.8 07/13/2014 Ot V72.84 07/18/2014 Ot V72.84 07/19/2014 Ot V72.84 07/19/2014 Ot V72.84 07/19/2014 Ot V72.84 07/20/2014 Ot V72.84 07/31/2014 [facility] DO, RAZA S Ot 250.00 07/31/2014 [facility] DO, RAZA S Ot 266.2 07/31/2014 [facility] DO, RAZA S Ot 268.9 07/31/2014 [facility] DO, RAZA S Ot 272.4 07/31/2014 [facility] DO, RAZA S Ot 719.40 07/31/2014 [facility] DO, RAZA S Ot 780.79 08/08/2014 KORTNEY MÉNDEZ Ot 246.9 DISORDER OF THYROID NOS 08/08/2014 KORTNEY MÉNDEZ Ot 276.50 VOLUME DEPLETION, UNSPECIFIED 08/08/2014 KORTNEY MÉNDEZ Ot 305.20 CANNABIS ABUSE-UNSPEC 08/08/2014 KORTNEY MÉNDEZ Ot 305.70 AMPHETAMINE ABUSE-UNSPEC 08/08/2014 KORTNEY MÉNDEZ Ot 599.72 MICROSCOPIC HEMATURIA 08/08/2014 KORTNEY MÉNDEZ Ot 724.2 LUMBAGO 08/08/2014 KORTNEY MÉNDEZ Ot 784.0 HEADACHE 08/08/2014 [facility] KORTNEY Jas Ot 923.10 CONTUSION OF FOREARM 08/08/2014 [facility] KORTNEY Jas Ot 924.11 CONTUSION OF KNEE 08/08/2014 [facility] KORTNEY Jas Ot 959.3 ELB/FOREARM/WRST INJ NOS 08/08/2014 [facility] KORTNEY Jas Ot E000.8 OTHER EXTERNAL CAUSE STATUS 08/08/2014 [facility] KORTNEY Jas Ot E849.0 ACCIDENT IN HOME 08/08/2014 [facility] KORTNEY Jas Ot E888.9 FALL NOS 08/26/2014 ORENDER DO, RAZA S Ot 250.00 08/26/2014 OREND DO, RAZA S Ot 266.2 08/26/2014 ORENDER DO, RAZA S Ot 268.9 08/26/2014 OREND DO, RAZA S Ot 272.4 08/26/2014 OREND DO, RAZA S Ot 719.40 08/26/2014 [facility] DO, RAZA S Ot 780.79 08/28/2014 [facility] DO, RAZA S Ot 785.0 08/28/2014 OREND DO, RAZA S Ot 785.2 10/04/2014 ORENDER DO, RAZA S Ot 785.0 10/04/2014 OREND DO, RAZA S Ot 785.2 10/18/2014 [facility] DO, RAAZ S Ot 244.9 10/23/2014 [facility] DO, RAZA S Ot 244.9 11/06/2014 DAYRON LOPEZ, NIRAV Dunbar Ot 599.82 11/06/2014 DAYRON LOPEZ, NIRAV Dunbar Ot 788.30 11/06/2014 DAYRON LOPEZ, NIRAV Dunbar Ot V72.84 11/06/2014 DAYRNO LOPEZ, NIRAV Dunbar Ot 599.82 11/06/2014 DAYRON LOPEZ, NIRAV Dunbar Ot 788.30 11/06/2014 DAYRON LOPEZ, NIRAV Dunbar Ot V72.84 11/07/2014 DAYRON LOPEZ, NIRAV Dunbar Ot 305.70 AMPHETAMINE ABUSE-UNSPEC 11/07/2014 DAYRON NIRAV LOPEZ Ot 596.51 HYPERTONICITY OF BLADDER 11/07/2014 NIRAV PADGETT MD Ot 599.82 INTRINSIC (URETHRA) SPHINCTER DEFICIENCY 11/07/2014 NIRAV PADGETT MD Ot 788.30 UNSPECIFIED URINARY INCONTINENCE 11/07/2014 NIRAV PADGETT MD Ot V64.1 NO PROC/CONTRAINDICATION 11/09/2014 Ot 611.72 11/21/2014 NIRAV PADGETT MD Ot 596.51 HYPERTONICITY OF BLADDER 11/21/2014 NIRAV PADGETT MD Ot 599.82 INTRINSIC (URETHRA) SPHINCTER DEFICIENCY 11/21/2014 NIRAV PADGETT MD Ot 788.30 UNSPECIFIED URINARY INCONTINENCE 11/27/2014 Ot 611.72 01/11/2015 NAHUM PARKER SQUARING SHEAR OPERATOR Ot K04.7 PERIAPICAL ABSCESS WITHOUT SINUS 01/11/2015 NAHUM PARKER SQUARING SHEAR OPERATOR Ot R22.0 LOCALIZED SWELLING, MASS AND LUMP, HEAD 01/15/2015 MAGGY DONOVAN 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 Ot 786.07 01/22/2015 MAGGY DONOVAN 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 Ot 786.07 02/01/2015 NIRAV PADGETT MD Ot N32.81 OVERACTIVE BLADDER 02/01/2015 NIRAV PADGETT MD, Ot N36.42 INTRINSIC SPHINCTER DEFICIENCY (ISD) 02/01/2015 NIRAV PADGETT MD Ot N81.10 CYSTOCELE, UNSPECIFIED 02/01/2015 NIRAV PADGETT MD Ot R32 UNSPECIFIED URINARY INCONTINENCE 02/01/2015 NIRAV PADGETT MD, Ot Z79.899 OTHER ZINC PLATER (CURRENT) DRUG THERAPY 02/15/2015 NIRAV PADGETT MD Ot N32.81 02/15/2015 NIRAV PADGETT MD, Ot N36.42 02/15/2015 NIRAV PADGETT MD, Ot N81.10 02/15/2015 NIRAV PADGETT MD Ot R32 02/15/2015 NIRAV PADGETT MD, Ot Z53.09 02/27/2015 NIRAV PADGETT MD Ot N32.81 02/27/2015 NIRAV PADGETT MD, Ot N36.42 02/27/2015 NIRAV PADGETT MD Ot N81.10 02/27/2015 DAYRON LOPEZ, NIRAV A Ot R32 02/27/2015 DAYRON LOPEZ, NIRAV Manjinder Ot Z53.09 03/22/2015 DOLORESNDER ROSI TREVIZOLINE S Ot E03.9 HYPOTHYROIDISM, UNSPECIFIED 03/22/2015 DOLORESNDER DO, RAZA S Ot E11.9 TYPE 2 DIABETES MELLITUS WITHOUT COMPLIC 03/22/2015 DOLORESNDER DO, RAZA S Ot E78.5 HYPERLIPIDEMIA, UNSPECIFIED 03/22/2015 ORENDER DO, RAZA S Ot F12.90 CANNABIS USE, UNSPECIFIED, UNCOMPLICATED 03/22/2015 ORENDER DO, RAZA S Ot F17.210 NICOTINE DEPENDENCE, CIGARETTES, UNCOMPL 03/22/2015 ORENDER DO, RAZA S Ot F32.9 MAJOR DEPRESSIVE DISORDER, SINGLE EPISOD 03/22/2015 DOLORESNDER DO, RAZA S Ot F41.9 ANXIETY DISORDER, UNSPECIFIED 03/22/2015 DOLORESNDER DO, RAZA S Ot J44.9 CHRONIC OBSTRUCTIVE PULMONARY DISEASE, U 03/22/2015 DOLORESNDER DO, RAZA S Ot K21.9 GASTRO-ESOPHAGEAL REFLUX DISEASE WITHOUT 03/22/2015 ORENDER DO, RAZA S Ot M25.50 PAIN IN UNSPECIFIED JOINT 03/22/2015 DOLORESNDER DO, RAZA S Ot M54.9 DORSALGIA, UNSPECIFIED 03/22/2015 DOLORESNDER , RAZA S Ot R07.89 OTHER CHEST PAIN 04/30/2015 Ot 722.0 04/30/2015 Ot 782.0 04/30/2015 Ot 790.29 04/30/2015 Ot 298.9 04/30/2015 Ot 368.9 04/30/2015 Ot 473.0 04/30/2015 Ot 780.79 04/30/2015 Ot 790.4 04/30/2015 Ot 787.03 04/30/2015 Ot 789.00 04/30/2015 Ot 790.6 04/30/2015 Ot 564.00 04/30/2015 Ot 564.00 04/30/2015 Ot 789.03 04/30/2015 Ot V13.01 04/30/2015 Ot 729.5 04/30/2015 Ot 729.81 04/30/2015 Ot 719.06 04/30/2015 Ot 719.46 04/30/2015 Ot E000.8 04/30/2015 Ot E849.0 04/30/2015 Ot E888.9 04/30/2015 Ot 717.7 04/30/2015 Ot V72.83 04/30/2015 Ot V74.8 04/30/2015 Ot 268.9 04/30/2015 Ot 719.40 04/30/2015 Ot 780.79 04/30/2015 Ot 717.7 04/30/2015 Ot V72.84 04/30/2015 Ot 723.1 04/30/2015 Ot 715.91 04/30/2015 Ot V72.84 04/30/2015 Ot V74.8 04/30/2015 Ot 268.9 04/30/2015 Ot 780.79 04/30/2015 Ot 782.0 04/30/2015 Ot 784.0 04/30/2015 Ot 784.59 04/30/2015 Ot 790.22 04/30/2015 Ot 244.9 04/30/2015 Ot 300.00 04/30/2015 Ot 401.9 04/30/2015 Ot 719.49 04/30/2015 Ot 729.1 04/30/2015 Ot 790.29 04/30/2015 EAN LOPEZ, GURMEET Phillips Ot V72.84 04/30/2015 ORENDER DO, RAZA S Ot 250.00 04/30/2015 ORENDER DO, RAZA S Ot 272.4 04/30/2015 ORENDER DO, RAZA S Ot 780.79 04/30/2015 ORENDER DO, RAZA S Ot 244.9 04/30/2015 ORENDER DO, RAZA S Ot 250.00 04/30/2015 ORENDER DO, RAZA S Ot 268.9 04/30/2015 ORENDER DO, RAZA S Ot 272.4 04/30/2015 ORENDER DO, RAZA S Ot 716.90 04/30/2015 ORENDER DO, RAZA S Ot 276.8 04/30/2015 ORENDER DO, RAZA S Ot 288.50 04/30/2015 ORENDER DO, RAZA S Ot 276.8 04/30/2015 DAYRON LOPEZ, NIRAV A Ot 592.9 04/30/2015 MAGGY DONOVAN 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 Ot 276.8 04/30/2015 ORENDER DO, RAZA S Ot 276.8 04/30/2015 Ot 611.72 04/30/2015 Ot V72.84 04/30/2015 ORENDER DO, RAZA S Ot 785.0 04/30/2015 ORENDER DO, RAZA S Ot 785.2 04/30/2015 ORENDER DO, RAZA S Ot 250.00 04/30/2015 ORENDER DO, RAZA S Ot 266.2 04/30/2015 ORENDER DO, RAZA S Ot 268.9 04/30/2015 ORENDER DO, RAZA S Ot 272.4 04/30/2015 ORENDER DO, RAZA S Ot 719.40 04/30/2015 ORENDER DO, RAZA S Ot 780.79 04/30/2015 [facility], RAZA S Ot 244.9 04/30/2015 DAYRON LOPEZ, NIRAV A Ot 599.82 04/30/2015 DAYRON LOPEZ, NIRAV A Ot 788.30 04/30/2015 DAYRON LOPEZ, NIRAV A Ot V72.84 04/30/2015 DAYRON LOPEZ, NIRAV A Ot 596.51 04/30/2015 DAYRON LOPEZ, NIRAV A Ot 599.82 04/30/2015 DAYRON LOPEZ, NIRAV A Ot 618.01 04/30/2015 DAYRON LOPEZ, NIRAV A Ot 788.20 04/30/2015 DAYRON LOPEZ, NIRAV A Ot V72.84 04/30/2015 DAYRON LOPEZ, NIRAV A Ot N32.81 04/30/2015 DAYRON LOPEZ, NIRAV A Ot N36.42 04/30/2015 DAYRON LOPEZ, NIRAV A Ot N81.10 04/30/2015 DAYRON LOPEZ, NIRAV A Ot R32 04/30/2015 DAYRON LOPEZ, NIRAV A Ot Z53.09 04/30/2015 MAGGY DONOVANP Ot 786.07 04/30/2015 DAYRON LOPEZ, NIRAV Dunbar Ot N32.81 04/30/2015 DAYRON LOPEZ, NIRAV Dunbar Ot N36.42 04/30/2015 DAYRON LOPEZ, NIRAV Dunbar Ot N81.10 04/30/2015 DAYRON LOPEZ, NIRAV A Ot R32 04/30/2015 DAYRON LOPEZ, NIRAV Dunbar Ot Z01.818 05/02/2015 EAN LOPEZ, GURMEET Phillips Ot K25.9 GASTRIC ULCER, UNSP ACUTE OR CHRONIC, 05/02/2015 EAN LOPEZ, GURMEET Phillips Ot K26.9 DUODENAL ULCER, UNSP ACUTE OR CHRONIC 05/09/2015 SOPHIE SALEH MD Ot E03.9 HYPOTHYROIDISM, UNSPECIFIED 05/09/2015 SOPHIE SALEH MD Ot E78.5 HYPERLIPIDEMIA, UNSPECIFIED 05/09/2015 SOPHIE SALEH MD Ot F17.200 NICOTINE DEPENDENCE, UNSPECIFIED, UNCOMP 05/09/2015 SOPHIE SALEH MD Ot F41.8 OTHER SPECIFIED ANXIETY DISORDERS 05/09/2015 SOPHIE SALEH MD Ot I10 ESSENTIAL (PRIMARY) HYPERTENSION 05/09/2015 SOPHIE SALEH MD Ot I25.10 ATHSCL HEART DISEASE OF [place] CORONARY 05/09/2015 SOPHIE SALEH MD Ot J44.9 CHRONIC OBSTRUCTIVE PULMONARY DISEASE, U 05/09/2015 SOPHIE SALEH MD Ot K21.9 GASTRO-ESOPHAGEAL REFLUX DISEASE WITHOUT 05/09/2015 SOPHIE SALEH MD Ot R07.89 OTHER CHEST PAIN 05/09/2015 SOPHIE SALEH MD Ot R94.39 ABNORMAL RESULT OF OTHER CARDIOVASCULAR 05/09/2015 SOPHIE SALEH MD Ot Z79.899 OTHER ZINC PLATER (CURRENT) DRUG THERAPY 05/24/2015 SOPHIE SALEH MD Ot R07.9 06/01/2015 SOPHIE SALEH MD Ot R07.9 06/11/2015 RAZA HARRIS DO S Ot E03.9 06/11/2015 ALBERTO HARRIS DOQUELINE S Ot E78.5 07/05/2015 ALBERTO HARRIS DOQUELINE S Ot E03.9 07/05/2015 ALBERTO HARRIS DOQUELINE S Ot E78.5 07/09/2015 RAZA HARRIS DO S Ot E03.9 07/09/2015 RAZA HARRIS DO S Ot E78.5 09/30/2015 KORTNEY MÉNDEZ Ot F17.210 NICOTINE DEPENDENCE, CIGARETTES, UNCOMPL 09/30/2015 KORTNEY MÉNDEZ Ot K59.00 CONSTIPATION, UNSPECIFIED 09/30/2015 KORTNEY MÉNDEZ Ot K76.0 FATTY (CHANGE OF) LIVER, NOT ELSEWHERE C 09/30/2015 KORTNEY MÉNDEZ Ot N39.0 URINARY TRACT INFECTION, SITE NOT SPECIF 10/04/2015 KORTNEY MÉNDEZ Ot F17.210 NICOTINE DEPENDENCE, CIGARETTES, UNCOMPL 10/04/2015 KORTNEY MÉNDEZ Ot K59.00 CONSTIPATION, UNSPECIFIED 10/04/2015 KORTNEY MÉNDEZ Ot K76.0 FATTY (CHANGE OF) LIVER, NOT ELSEWHERE C 10/04/2015 KORTNEY MÉNDEZ Ot N39.0 URINARY TRACT INFECTION, SITE NOT SPECIF 10/04/2015 KORTNEY MÉNDEZ Ot F17.210 NICOTINE DEPENDENCE, CIGARETTES, UNCOMPL 10/04/2015 KORTNEY MÉNDEZ Ot K59.00 CONSTIPATION, UNSPECIFIED 10/04/2015 KORTNEY MÉNDEZ Ot K76.0 FATTY (CHANGE OF) LIVER, NOT ELSEWHERE C 10/04/2015 KORTNEY MÉNDEZ Ot N39.0 URINARY TRACT INFECTION, SITE NOT SPECIF 10/08/2015 ROM DO, TERESA K Ot F17.210 NICOTINE DEPENDENCE, CIGARETTES, UNCOMPL 10/08/2015 ROM DO, TERESA K Ot K59.00 CONSTIPATION, UNSPECIFIED 10/08/2015 ROM DO, TERESA K Ot Z79.891 ZINC PLATER (CURRENT) USE OF OPIATE ANALGE 10/09/2015 ROM DO, TERESA K Ot F17.210 NICOTINE DEPENDENCE, CIGARETTES, UNCOMPL 10/09/2015 ROM DO, TERESA K Ot K59.00 CONSTIPATION, UNSPECIFIED 10/09/2015 ROM DO, TERESA K Ot Z79.891 ASSISTED (CURRENT) USE OF OPIATE ANALGE 10/24/2015 KORTNEY MÉNDEZ Ot F17.210 NICOTINE DEPENDENCE, CIGARETTES, UNCOMPL 10/24/2015 KORTNEY MÉNDEZ Ot K59.00 CONSTIPATION, UNSPECIFIED 10/24/2015 KORTNEY MÉNDEZ Ot K76.0 FATTY (CHANGE OF) LIVER, NOT ELSEWHERE C 10/24/2015 KORTNEY MÉNDEZ Ot N39.0 URINARY TRACT INFECTION, SITE NOT SPECIF 11/22/2015 Ot 790.29 OTHER ABNORMAL GLUCOSE 11/22/2015 Ot 298.9 PSYCHOSIS NOS 11/22/2015 Ot 368.9 VISUAL DISTURBANCE NOS 11/22/2015 Ot 473.0 CHR MAXILLARY SINUSITIS 11/22/2015 Ot 780.79 OTH MALAISE FATIGUE 11/22/2015 Ot 790.4 ELEV TRANSAMINASE/LDH 11/22/2015 Ot 787.03 VOMITING ALONE 11/22/2015 Ot 789.00 ABDOMINAL PAIN, UNSPECIFIED SITE 11/22/2015 Ot 790.6 ABN BLOOD CHEMISTRY NEC 11/22/2015 Ot 564.00 UNSPEC CONSTIPATION 11/22/2015 Ot 564.00 UNSPEC CONSTIPATION 11/22/2015 Ot 789.03 ABDOMINAL PAIN, RIGHT LOWER QUADRANT 11/22/2015 Ot V13.01 PERSONAL HISTORY OF URINARY CALCULI 11/22/2015 Ot 729.5 PAIN IN LIMB 11/22/2015 Ot 729.81 SWELLING OF LIMB 11/22/2015 Ot 719.06 JOINT EFFUSION-L/LEG 11/22/2015 Ot 719.46 JOINT PAIN-L /LEG 11/22/2015 Ot E000.8 OTHER EXTERNAL CAUSE STATUS 11/22/2015 Ot E849.0 ACCIDENT IN HOME 11/22/2015 Ot E888.9 FALL NOS 11/22/2015 Ot 717.7 CHONDROMALACIA PATELLAE 11/22/2015 Ot V72.83 EXAM PRE- OPERATIVE NEC 11/22/2015 Ot V74.8 SCREEN- BACTERIAL DIS NEC 11/22/2015 Ot 268.9 VITAMIN D DEFICIENCY NOS 11/22/2015 Ot 719.40 JOINT PAIN- UNSPEC 11/22/2015 Ot 780.79 OTH MALAISE FATIGUE 11/22/2015 Ot 717.7 CHONDROMALACIA PATELLAE 11/22/2015 Ot V72.84 EXAM PRE- OPERATIVE NOS 11/22/2015 Ot 723.1 CERVICALGIA 11/22/2015 Ot 715.91 OSTEOARTHROS NOS-SHLDER 11/22/2015 Ot V72.84 EXAM PRE- OPERATIVE NOS 11/22/2015 Ot V74.8 SCREEN- BACTERIAL DIS NEC 11/22/2015 Ot 268.9 VITAMIN D DEFICIENCY NOS 11/22/2015 Ot 780.79 OTH MALAISE FATIGUE 11/22/2015 Ot 782.0 SKIN SENSATION DISTURB 11/22/2015 Ot 784.0 HEADACHE 11/22/2015 Ot 784.59 OTHER SPEECH DISTURBANCE 11/22/2015 Ot 790.22 IMPAIRED GLUCOSE TOLERANCE TEST (ORAL) 11/22/2015 Ot 244.9 HYPOTHYROIDISM NOS 11/22/2015 Ot 300.00 ANXIETY STATE NOS 11/22/2015 Ot 401.9 HYPERTENSION NOS 11/22/2015 Ot 719.49 JOINT PAIN- MULT JTS 11/22/2015 Ot 729.1 MYALGIA AND MYOSITIS NOS 11/22/2015 Ot 790.29 OTHER ABNORMAL GLUCOSE 11/22/2015 EAN LOPEZ, GURMEET Phillips Ot V72.84 EXAM PRE-OPERATIVE NOS 11/22/2015 ORENDER DO, RAZA S Ot 250.00 DIAB QIAN WO COMPL, TYPE II OR UNSPEC TY 11/22/2015 ORENDER DO, RAZA S Ot 272.4 HYPERLIPIDEMIA NEC/NOS 11/22/2015 ORENDER DO, RAZA S Ot 780.79 OTH MALAISE FATIGUE 11/22/2015 ORENDER DO, RAZA S Ot 244.9 HYPOTHYROIDISM NOS 11/22/2015 ORENDER DO, RAZA S Ot 250.00 DIAB QIAN WO COMPL, TYPE II OR UNSPEC TY 11/22/2015 ORENDER DO, RAZA S Ot 268.9 VITAMIN D DEFICIENCY NOS 11/22/2015 ORENDER DO, RAZA S Ot 272.4 HYPERLIPIDEMIA NEC/NOS 11/22/2015 ORENDER DO, RAZA S Ot 716.90 ARTHROPATHY NOS-UNSPEC 11/22/2015 ORENDER DO, RAZA S Ot 276.8 HYPOPOTASSEMIA 11/22/2015 ORENDER DO, RAZA S Ot 288.50 LEUKOCYTOPENIA, UNSPECIFIED 11/22/2015 ORENDER DO, RAZA S Ot 276.8 HYPOPOTASSEMIA 11/22/2015 DAYRON LOPEZ, NIRAV Dunbar Ot 592.9 URINARY CALCULUS NOS 11/22/2015 MAGGY DONOVAN Ot 276.8 HYPOPOTASSEMIA 11/22/2015 RAZA HARRIS DO S Ot 276.8 HYPOPOTASSEMIA 11/22/2015 Ot 611.72 LUMP OR MASS IN BREAST 11/22/2015 Ot V72.84 EXAM PRE- OPERATIVE NOS 11/22/2015 RAZA HARRIS DO Ot 785.0 TACHYCARDIA NOS 11/22/2015 RAZA HARRIS DO S Ot 785.2 CARDIAC MURMURS NEC 11/22/2015 RAZA HARRIS DO S Ot 250.00 DIAB QIAN WO COMPL, TYPE II OR UNSPEC TY 11/22/2015 ROSI HARRIS DOLINE S Ot 266.2 B-COMPLEX DEFIC NEC 11/22/2015 RAZA HARRIS DO S Ot 268.9 VITAMIN D DEFICIENCY NOS 11/22/2015 RAZA HARRIS DO S Ot 272.4 HYPERLIPIDEMIA NEC/NOS 11/22/2015 RAZA HARRIS DO S Ot 719.40 JOINT PAIN-UNSPEC 11/22/2015 RAZA HARRIS DO S Ot 780.79 OTH MALAISE FATIGUE 11/22/2015 RAZA HARRIS DO S Ot 244.9 HYPOTHYROIDISM NOS 11/22/2015 NIRAV PADGETT MD Ot 599.82 INTRINSIC (URETHRA) SPHINCTER DEFICIENCY 11/22/2015 NIRAV PADGETT MD Ot 788.30 UNSPECIFIED URINARY INCONTINENCE 11/22/2015 NIRAV PADGETT MD Ot V72.84 EXAM PRE-OPERATIVE NOS 11/22/2015 NIRAV PADGETT MD Ot 596.51 HYPERTONICITY OF BLADDER 11/22/2015 NIRAV PADGETT MD Ot 599.82 INTRINSIC (URETHRA) SPHINCTER DEFICIENCY 11/22/2015 NIRAV PADGETT MD Ot 618.01 CYSTOCELE, MIDLINE 11/22/2015 NIRAV PADGETT MD Ot 788.20 RETENTION OF URINE NOS 11/22/2015 NIRAV PADGETT MD Ot V72.84 EXAM PRE-OPERATIVE NOS 11/22/2015 NIRAV PADGETT MD Ot N32.81 OVERACTIVE BLADDER 11/22/2015 NIRAV PADGETT MD Ot N36.42 INTRINSIC SPHINCTER DEFICIENCY (ISD) 11/22/2015 NIRAV PADGETT MD Ot N81.10 CYSTOCELE, UNSPECIFIED 11/22/2015 DAYRON LOPEZ, NIRAV Dunbar Ot R32 UNSPECIFIED URINARY INCONTINENCE 11/22/2015 DAYRON LOPEZ, NIRAV Dunbar Ot Z53.09 PROC/TRTMT NOT CARRIED OUT BECAUSE OF CO 11/22/2015 MAGGY DONOVAN 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 Ot 786.07 WHEEZING 11/22/2015 DAYRON LOPEZ, NIRAV Dunbar Ot N32.81 OVERACTIVE BLADDER 11/22/2015 DAYRON LOPEZ, NIRAV Dunbar Ot N36.42 INTRINSIC SPHINCTER DEFICIENCY (ISD) 11/22/2015 DAYRON LOPEZ, NIRAV Dunbar Ot N81.10 CYSTOCELE, UNSPECIFIED 11/22/2015 DAYRON LOPEZ, NIRAV Dunbar Ot R32 UNSPECIFIED URINARY INCONTINENCE 11/22/2015 DAYRON LOPEZ, NIRAV Dunbar Ot Z01.818 ENCOUNTER FOR OTHER PREPROCEDURAL EXAMIN 11/22/2015 THERESE LOPEZ, SOPHIE Zavaleta Ot R07.9 CHEST PAIN, UNSPECIFIED 11/22/2015 Ot Z01.818 ENCOUNTER FOR OTHER PREPROCEDURAL EXAMIN 11/22/2015 RAZA HARRIS DO Ot E03.9 HYPOTHYROIDISM, UNSPECIFIED 11/22/2015 RAZA HARRIS DO Ot E78.5 HYPERLIPIDEMIA, UNSPECIFIED 12/31/2015 Ot 790.29 OTHER ABNORMAL GLUCOSE 12/31/2015 Ot 298.9 PSYCHOSIS NOS 12/31/2015 Ot 368.9 VISUAL DISTURBANCE NOS 12/31/2015 Ot 473.0 CHR MAXILLARY SINUSITIS 12/31/2015 Ot 780.79 OTH MALAISE FATIGUE 12/31/2015 Ot 790.4 ELEV TRANSAMINASE/LDH 12/31/2015 Ot 787.03 VOMITING ALONE 12/31/2015 Ot 789.00 ABDOMINAL PAIN, UNSPECIFIED SITE 12/31/2015 Ot 790.6 ABN BLOOD CHEMISTRY NEC 12/31/2015 Ot 564.00 UNSPEC CONSTIPATION 12/31/2015 Ot 564.00 UNSPEC CONSTIPATION 12/31/2015 Ot 789.03 ABDOMINAL PAIN, RIGHT LOWER QUADRANT 12/31/2015 Ot V13.01 PERSONAL HISTORY OF URINARY CALCULI 12/31/2015 Ot 729.5 PAIN IN LIMB 12/31/2015 Ot 729.81 SWELLING OF LIMB 12/31/2015 Ot 719.06 JOINT EFFUSION-L/LEG 12/31/2015 Ot 719.46 JOINT PAIN-L /LEG 12/31/2015 Ot E000.8 OTHER EXTERNAL CAUSE STATUS 12/31/2015 Ot E849.0 ACCIDENT IN HOME 12/31/2015 Ot E888.9 FALL NOS 12/31/2015 Ot 717.7 CHONDROMALACIA PATELLAE 12/31/2015 Ot V72.83 EXAM PRE- OPERATIVE NEC 12/31/2015 Ot V74.8 SCREEN- BACTERIAL DIS NEC 12/31/2015 Ot 268.9 VITAMIN D DEFICIENCY NOS 12/31/2015 Ot 719.40 JOINT PAIN- UNSPEC 12/31/2015 Ot 780.79 OTH MALAISE FATIGUE 12/31/2015 Ot 717.7 CHONDROMALACIA PATELLAE 12/31/2015 Ot V72.84 EXAM PRE- OPERATIVE NOS 12/31/2015 Ot 723.1 CERVICALGIA 12/31/2015 Ot 715.91 OSTEOARTHROS NOS-SHLDER 12/31/2015 Ot V72.84 EXAM PRE- OPERATIVE NOS 12/31/2015 Ot V74.8 SCREEN- BACTERIAL DIS NEC 12/31/2015 Ot 268.9 VITAMIN D DEFICIENCY NOS 12/31/2015 Ot 780.79 OTH MALAISE FATIGUE 12/31/2015 Ot 782.0 SKIN SENSATION DISTURB 12/31/2015 Ot 784.0 HEADACHE 12/31/2015 Ot 784.59 OTHER SPEECH DISTURBANCE 12/31/2015 Ot 790.22 IMPAIRED GLUCOSE TOLERANCE TEST (ORAL) 12/31/2015 Ot 244.9 HYPOTHYROIDISM NOS 12/31/2015 Ot 300.00 ANXIETY STATE NOS 12/31/2015 Ot 401.9 HYPERTENSION NOS 12/31/2015 Ot 719.49 JOINT PAIN- MULT JTS 12/31/2015 Ot 729.1 MYALGIA AND MYOSITIS NOS 12/31/2015 Ot 790.29 OTHER ABNORMAL GLUCOSE 12/31/2015 EAN LOPEZ, GURMEET Phillips Ot V72.84 EXAM PRE-OPERATIVE NOS 12/31/2015 RAZA HARRIS DO Ot 250.00 DIAB QIAN WO COMPL, TYPE II OR UNSPEC TY 12/31/2015 RAZA HARRIS DO Ot 272.4 HYPERLIPIDEMIA NEC/NOS 12/31/2015 RAZA HARRIS DO Ot 780.79 OTH MALAISE FATIGUE 12/31/2015 ORENDER DO, RAZA S Ot 244.9 HYPOTHYROIDISM NOS 12/31/2015 ORENDER DO, RAZA S Ot 250.00 DIAB QIAN WO COMPL, TYPE II OR UNSPEC TY 12/31/2015 ORENDER DO, RAZA S Ot 268.9 VITAMIN D DEFICIENCY NOS 12/31/2015 ORENDER DO, RAZA S Ot 272.4 HYPERLIPIDEMIA NEC/NOS 12/31/2015 ORENDER DO, RAZA S Ot 716.90 ARTHROPATHY NOS-UNSPEC 12/31/2015 ORENDER DO, RAZA S Ot 276.8 HYPOPOTASSEMIA 12/31/2015 ORENDER DO, RAZA S Ot 288.50 LEUKOCYTOPENIA, UNSPECIFIED 12/31/2015 ORENDER DO, RAZA S Ot 276.8 HYPOPOTASSEMIA 12/31/2015 NIRAV PADGETT MD Ot 592.9 URINARY CALCULUS NOS 12/31/2015 MAGGY DONOVAN 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 Ot 276.8 HYPOPOTASSEMIA 12/31/2015 ORENDER DO, RAZA S Ot 276.8 HYPOPOTASSEMIA 12/31/2015 Ot 611.72 LUMP OR MASS IN BREAST 12/31/2015 Ot V72.84 EXAM PRE- OPERATIVE NOS 12/31/2015 DOLORESNDER DO, RAZA S Ot 785.0 TACHYCARDIA NOS 12/31/2015 ORENDER DO, RAZA S Ot 785.2 CARDIAC MURMURS NEC 12/31/2015 ORENDER DO, RAZA S Ot 250.00 DIAB QIAN WO COMPL, TYPE II OR UNSPEC TY 12/31/2015 DOLORESNDER DO, RAZA S Ot 266.2 B-COMPLEX DEFIC NEC 12/31/2015 ORENDER DO, RAZA S Ot 268.9 VITAMIN D DEFICIENCY NOS 12/31/2015 ORENDER DO, RAZA S Ot 272.4 HYPERLIPIDEMIA NEC/NOS 12/31/2015 DOLORESNDER DO, RAZA S Ot 719.40 JOINT PAIN-UNSPEC 12/31/2015 ORENDER DO, RAZA S Ot 780.79 OTH MALAISE FATIGUE 12/31/2015 DOLORESNDER DO, RAZA S Ot 244.9 HYPOTHYROIDISM NOS 12/31/2015 NIRAV PADGETT MD Ot 599.82 INTRINSIC (URETHRA) SPHINCTER DEFICIENCY 12/31/2015 NIRAV PADGETT MD Ot 788.30 UNSPECIFIED URINARY INCONTINENCE 12/31/2015 NIRAV PADGETT MD Ot V72.84 EXAM PRE-OPERATIVE NOS 12/31/2015 NIRAV PADGETT MD Ot 596.51 HYPERTONICITY OF BLADDER 12/31/2015 NIRAV PADGETT MD Ot 599.82 INTRINSIC (URETHRA) SPHINCTER DEFICIENCY 12/31/2015 NIRAV PADGETT MD Ot 618.01 CYSTOCELE, MIDLINE 12/31/2015 NIRAV PADGETT MD Ot 788.20 RETENTION OF URINE NOS 12/31/2015 NIRAV PADGETT MD, Ot V72.84 EXAM PRE-OPERATIVE NOS 12/31/2015 NIRAV PADGETT MD, Ot N32.81 OVERACTIVE BLADDER 12/31/2015 NIRAV PADGETT MD, Ot N36.42 INTRINSIC SPHINCTER DEFICIENCY (ISD) 12/31/2015 NIRAV PADGETT MD Ot N81.10 CYSTOCELE, UNSPECIFIED 12/31/2015 NIRAV PADGETT MD, Ot R32 UNSPECIFIED URINARY INCONTINENCE 12/31/2015 NIRAV PADGETT MD, Ot Z53.09 PROC/TRTMT NOT CARRIED OUT BECAUSE OF CO 12/31/2015 MAGGY DONOVAN Ot 786.07 WHEEZING 12/31/2015 NIRAV PADGETT MD Ot N32.81 OVERACTIVE BLADDER 12/31/2015 NIRAV PADGETT MD, Ot N36.42 INTRINSIC SPHINCTER DEFICIENCY (ISD) 12/31/2015 NIRAV PADGETT MD Ot N81.10 CYSTOCELE, UNSPECIFIED 12/31/2015 NIRAV PADGETT MD Ot R32 UNSPECIFIED URINARY INCONTINENCE 12/31/2015 NIRAV PADGETT MD Ot Z01.818 ENCOUNTER FOR OTHER PREPROCEDURAL EXAMIN 12/31/2015 THERESE LOPEZ, SOPHIE Zavaleta Ot R07.9 CHEST PAIN, UNSPECIFIED 12/31/2015 Ot Z01.818 ENCOUNTER FOR OTHER PREPROCEDURAL EXAMIN 12/31/2015 RAZA HARRIS DO Ot E03.9 HYPOTHYROIDISM, UNSPECIFIED 12/31/2015 ORENDER DO, RAZA S Ot E78.5 HYPERLIPIDEMIA, UNSPECIFIED 01/02/2016 RAZA HARRIS DO Ot M51.16 INTERVERTEBRAL DISC DISORDERS W RADICULO 01/04/2016 Ot 790.29 OTHER ABNORMAL GLUCOSE 01/04/2016 Ot 298.9 PSYCHOSIS NOS 01/04/2016 Ot 368.9 VISUAL DISTURBANCE NOS 01/04/2016 Ot 473.0 CHR MAXILLARY SINUSITIS 01/04/2016 Ot 780.79 OTH MALAISE FATIGUE 01/04/2016 Ot 790.4 ELEV TRANSAMINASE/LDH 01/04/2016 Ot 787.03 VOMITING ALONE 01/04/2016 Ot 789.00 ABDOMINAL PAIN, UNSPECIFIED SITE 01/04/2016 Ot 790.6 ABN BLOOD CHEMISTRY NEC 01/04/2016 Ot 564.00 UNSPEC CONSTIPATION 01/04/2016 Ot 564.00 UNSPEC CONSTIPATION 01/04/2016 Ot 789.03 ABDOMINAL PAIN, RIGHT LOWER QUADRANT 01/04/2016 Ot V13.01 PERSONAL HISTORY OF URINARY CALCULI 01/04/2016 Ot 729.5 PAIN IN LIMB 01/04/2016 Ot 729.81 SWELLING OF LIMB 01/04/2016 Ot 719.06 JOINT EFFUSION-L/LEG 01/04/2016 Ot 719.46 JOINT PAIN-L /LEG 01/04/2016 Ot E000.8 OTHER EXTERNAL CAUSE STATUS 01/04/2016 Ot E849.0 ACCIDENT IN HOME 01/04/2016 Ot E888.9 FALL NOS 01/04/2016 Ot 717.7 CHONDROMALACIA PATELLAE 01/04/2016 Ot V72.83 EXAM PRE- OPERATIVE NEC 01/04/2016 Ot V74.8 SCREEN- BACTERIAL DIS NEC 01/04/2016 Ot 268.9 VITAMIN D DEFICIENCY NOS 01/04/2016 Ot 719.40 JOINT PAIN- UNSPEC 01/04/2016 Ot 780.79 OTH MALAISE FATIGUE 01/04/2016 Ot 717.7 CHONDROMALACIA PATELLAE 01/04/2016 Ot V72.84 EXAM PRE- OPERATIVE NOS 01/04/2016 Ot 723.1 CERVICALGIA 01/04/2016 Ot 715.91 OSTEOARTHROS NOS-SHLDER 01/04/2016 Ot V72.84 EXAM PRE- OPERATIVE NOS 01/04/2016 Ot V74.8 SCREEN- BACTERIAL DIS NEC 01/04/2016 Ot 268.9 VITAMIN D DEFICIENCY NOS 01/04/2016 Ot 780.79 OTH MALAISE FATIGUE 01/04/2016 Ot 782.0 SKIN SENSATION DISTURB 01/04/2016 Ot 784.0 HEADACHE 01/04/2016 Ot 784.59 OTHER SPEECH DISTURBANCE 01/04/2016 Ot 790.22 IMPAIRED GLUCOSE TOLERANCE TEST (ORAL) 01/04/2016 Ot 244.9 HYPOTHYROIDISM NOS 01/04/2016 Ot 300.00 ANXIETY STATE NOS 01/04/2016 Ot 401.9 HYPERTENSION NOS 01/04/2016 Ot 719.49 JOINT PAIN- MULT JTS 01/04/2016 Ot 729.1 MYALGIA AND MYOSITIS NOS 01/04/2016 Ot 790.29 OTHER ABNORMAL GLUCOSE 01/04/2016 EAN LOPEZ, GURMEET Phillips Ot V72.84 EXAM PRE-OPERATIVE NOS 01/04/2016 ORENDER DO, RAZA S Ot 250.00 DIAB QIAN WO COMPL, TYPE II OR UNSPEC TY 01/04/2016 ORENDER DO, RAZA S Ot 272.4 HYPERLIPIDEMIA NEC/NOS 01/04/2016 ORENDER DO, RAZA S Ot 780.79 OTH MALAISE FATIGUE 01/04/2016 ORENDER DO, RAZA S Ot 244.9 HYPOTHYROIDISM NOS 01/04/2016 ORENDER DO, RAZA S Ot 250.00 DIAB QIAN WO COMPL, TYPE II OR UNSPEC TY 01/04/2016 ORENDER DO, RAZA S Ot 268.9 VITAMIN D DEFICIENCY NOS 01/04/2016 ORENDER DO, RAZA S Ot 272.4 HYPERLIPIDEMIA NEC/NOS 01/04/2016 ORENDER DO, RAZA S Ot 716.90 ARTHROPATHY NOS-UNSPEC 01/04/2016 ORENDER DO, RAZA S Ot 276.8 HYPOPOTASSEMIA 01/04/2016 ORENDER DO, RAZA S Ot 288.50 LEUKOCYTOPENIA, UNSPECIFIED 01/04/2016 ORENDER DO, RAZA S Ot 276.8 HYPOPOTASSEMIA 01/04/2016 DAYRON LOPEZ, NIRAV Dunbar Ot 592.9 URINARY CALCULUS NOS 01/04/2016 MAGGY DONOVAN Ot 276.8 HYPOPOTASSEMIA 01/04/2016 ORENDER DO, RAZA S Ot 276.8 HYPOPOTASSEMIA 01/04/2016 Ot 611.72 LUMP OR MASS IN BREAST 01/04/2016 Ot V72.84 EXAM PRE- OPERATIVE NOS 01/04/2016 RAZA HARRIS DO S Ot 785.0 TACHYCARDIA NOS 01/04/2016 ROSI HARRIS DOLINE S Ot 785.2 CARDIAC MURMURS NEC 01/04/2016 ROSI HARRIS DOLINE S Ot 250.00 DIAB QIAN WO COMPL, TYPE II OR UNSPEC TY 01/04/2016 KIMBERLY TREVIZO, RAZA S Ot 266.2 B-COMPLEX DEFIC NEC 01/04/2016 ROSI HARRIS DOLINE S Ot 268.9 VITAMIN D DEFICIENCY NOS 01/04/2016 ROSI HARRIS DOLINE S Ot 272.4 HYPERLIPIDEMIA NEC/NOS 01/04/2016 ROSI HARRIS DOLINE S Ot 719.40 JOINT PAIN-UNSPEC 01/04/2016 ROSI HARRIS DOLINE S Ot 780.79 OTH MALAISE FATIGUE 01/04/2016 ROSI HARRIS DOLINE S Ot 244.9 HYPOTHYROIDISM NOS 01/04/2016 NIRAV PADGETT MD Ot 599.82 INTRINSIC (URETHRA) SPHINCTER DEFICIENCY 01/04/2016 NIRAV PADGETT MD Ot 788.30 UNSPECIFIED URINARY INCONTINENCE 01/04/2016 NIRAV PADGETT MD Ot V72.84 EXAM PRE-OPERATIVE NOS 01/04/2016 NIRAV PADGETT MD Ot 596.51 HYPERTONICITY OF BLADDER 01/04/2016 NIRAV PADGETT MD Ot 599.82 INTRINSIC (URETHRA) SPHINCTER DEFICIENCY 01/04/2016 NIRAV PADGETT MD Ot 618.01 CYSTOCELE, MIDLINE 01/04/2016 NIRAV PADGETT MD Ot 788.20 RETENTION OF URINE NOS 01/04/2016 NIRAV PADGETT MD Ot V72.84 EXAM PRE-OPERATIVE NOS 01/04/2016 NIRAV PADGETT MD Ot N32.81 OVERACTIVE BLADDER 01/04/2016 NIRAV PADGETT MD, Ot N36.42 INTRINSIC SPHINCTER DEFICIENCY (ISD) 01/04/2016 NIRAV PADGETT MD Ot N81.10 CYSTOCELE, UNSPECIFIED 01/04/2016 NIRAV PADGETT MD Ot R32 UNSPECIFIED URINARY INCONTINENCE 01/04/2016 DAYRON LOPEZ, NIRAV Dunbar Ot Z53.09 PROC/TRTMT NOT CARRIED OUT BECAUSE OF CO 01/04/2016 MAGGY DONOVAN 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 Ot 786.07 WHEEZING 01/04/2016 DAYRON LOPEZ, NIRAV Dunbar Ot N32.81 OVERACTIVE BLADDER 01/04/2016 DAYRON LOPEZ, NIRAV Dunbar Ot N36.42 INTRINSIC SPHINCTER DEFICIENCY (ISD) 01/04/2016 DAYRON LOPEZ, NIRAV Dunbar Ot N81.10 CYSTOCELE, UNSPECIFIED 01/04/2016 DAYRON LOPEZ, NIRAV Dunbar Ot R32 UNSPECIFIED URINARY INCONTINENCE 01/04/2016 DAYRON LOPEZ, NIRAV Dunbar Ot Z01.818 ENCOUNTER FOR OTHER PREPROCEDURAL EXAMIN 01/04/2016 THERESE LOPEZ, SOPHIE Zavaleta Ot R07.9 CHEST PAIN, UNSPECIFIED 01/04/2016 Ot Z01.818 ENCOUNTER FOR OTHER PREPROCEDURAL EXAMIN 01/04/2016 ORENDER DO, RAZA S Ot E03.9 HYPOTHYROIDISM, UNSPECIFIED 01/04/2016 ORENDER DO, RAZA S Ot E78.5 HYPERLIPIDEMIA, UNSPECIFIED 01/04/2016 ORENDER DO, RAZA S Ot M51.16 INTERVERTEBRAL DISC DISORDERS W RADICULO 01/04/2016 ERICH LOPEZ, FLORIN Zavaleta Ot G89.4 CHRONIC PAIN SYNDROME 01/04/2016 FLORIN JUNG MD Ot M51.16 INTERVERTEBRAL DISC DISORDERS W RADICULO 01/04/2016 ERICH LOPEZ, FLORIN Zavaleta Ot Z79.899 OTHER ASSISTED (CURRENT) DRUG THERAPY 01/09/2016 Ot 790.29 OTHER ABNORMAL GLUCOSE 01/09/2016 Ot 298.9 PSYCHOSIS NOS 01/09/2016 Ot 368.9 VISUAL DISTURBANCE NOS 01/09/2016 Ot 473.0 CHR MAXILLARY SINUSITIS 01/09/2016 Ot 780.79 OTH MALAISE FATIGUE 01/09/2016 Ot 790.4 ELEV TRANSAMINASE/LDH 01/09/2016 Ot 787.03 VOMITING ALONE 01/09/2016 Ot 789.00 ABDOMINAL PAIN, UNSPECIFIED SITE 01/09/2016 Ot 790.6 ABN BLOOD CHEMISTRY NEC 01/09/2016 Ot 564.00 UNSPEC CONSTIPATION 01/09/2016 Ot 564.00 UNSPEC CONSTIPATION 01/09/2016 Ot 789.03 ABDOMINAL PAIN, RIGHT LOWER QUADRANT 01/09/2016 Ot V13.01 PERSONAL HISTORY OF URINARY CALCULI 01/09/2016 Ot 729.5 PAIN IN LIMB 01/09/2016 Ot 729.81 SWELLING OF LIMB 01/09/2016 Ot 719.06 JOINT EFFUSION-L/LEG 01/09/2016 Ot 719.46 JOINT PAIN-L /LEG 01/09/2016 Ot E000.8 OTHER EXTERNAL CAUSE STATUS 01/09/2016 Ot E849.0 ACCIDENT IN HOME 01/09/2016 Ot E888.9 FALL NOS 01/09/2016 Ot 717.7 CHONDROMALACIA PATELLAE 01/09/2016 Ot V72.83 EXAM PRE- OPERATIVE NEC 01/09/2016 Ot V74.8 SCREEN- BACTERIAL DIS NEC 01/09/2016 Ot 268.9 VITAMIN D DEFICIENCY NOS 01/09/2016 Ot 719.40 JOINT PAIN- UNSPEC 01/09/2016 Ot 780.79 OTH MALAISE FATIGUE 01/09/2016 Ot 717.7 CHONDROMALACIA PATELLAE 01/09/2016 Ot V72.84 EXAM PRE- OPERATIVE NOS 01/09/2016 Ot 723.1 CERVICALGIA 01/09/2016 Ot 715.91 OSTEOARTHROS NOS-SHLDER 01/09/2016 Ot V72.84 EXAM PRE- OPERATIVE NOS 01/09/2016 Ot V74.8 SCREEN- BACTERIAL DIS NEC 01/09/2016 Ot 268.9 VITAMIN D DEFICIENCY NOS 01/09/2016 Ot 780.79 OTH MALAISE FATIGUE 01/09/2016 Ot 782.0 SKIN SENSATION DISTURB 01/09/2016 Ot 784.0 HEADACHE 01/09/2016 Ot 784.59 OTHER SPEECH DISTURBANCE 01/09/2016 Ot 790.22 IMPAIRED GLUCOSE TOLERANCE TEST (ORAL) 01/09/2016 Ot 244.9 HYPOTHYROIDISM NOS 01/09/2016 Ot 300.00 ANXIETY STATE NOS 01/09/2016 Ot 401.9 HYPERTENSION NOS 01/09/2016 Ot 719.49 JOINT PAIN- MULT JTS 01/09/2016 Ot 729.1 MYALGIA AND MYOSITIS NOS 01/09/2016 Ot 790.29 OTHER ABNORMAL GLUCOSE 01/09/2016 EAN LOPEZ, GURMEET Phillips Ot V72.84 EXAM PRE-OPERATIVE NOS 01/09/2016 ORENDER DO, RAZA S Ot 250.00 DIAB QIAN WO COMPL, TYPE II OR UNSPEC TY 01/09/2016 ORENDER DO, RAZA S Ot 272.4 HYPERLIPIDEMIA NEC/NOS 01/09/2016 ORENDER DO, RAZA S Ot 780.79 OTH MALAISE FATIGUE 01/09/2016 ORENDER DO, RAZA S Ot 244.9 HYPOTHYROIDISM NOS 01/09/2016 ORENDER DO, RAZA S Ot 250.00 DIAB QIAN WO COMPL, TYPE II OR UNSPEC TY 01/09/2016 ORENDER DO, RAZA S Ot 268.9 VITAMIN D DEFICIENCY NOS 01/09/2016 ORENDER DO, RAZA S Ot 272.4 HYPERLIPIDEMIA NEC/NOS 01/09/2016 ORENDER DO, RAZA S Ot 716.90 ARTHROPATHY NOS-UNSPEC 01/09/2016 ORENDER DO, RAZA S Ot 276.8 HYPOPOTASSEMIA 01/09/2016 ORENDER DO, RAZA S Ot 288.50 LEUKOCYTOPENIA, UNSPECIFIED 01/09/2016 ORENDER DO, RZAA S Ot 276.8 HYPOPOTASSEMIA 01/09/2016 DAYRON LOPEZ, NIRAV A Ot 592.9 URINARY CALCULUS NOS 01/09/2016 MAGGY DONOVAN 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 Ot 276.8 HYPOPOTASSEMIA 01/09/2016 ORENDER DO, RAZA S Ot 276.8 HYPOPOTASSEMIA 01/09/2016 Ot 611.72 LUMP OR MASS IN BREAST 01/09/2016 Ot V72.84 EXAM PRE- OPERATIVE NOS 01/09/2016 ORENDER DO, RAZA S Ot 785.0 TACHYCARDIA NOS 01/09/2016 ORENDER DO, RAZA S Ot 785.2 CARDIAC MURMURS NEC 01/09/2016 ORENDER DO, RAZA S Ot 250.00 DIAB QIAN WO COMPL, TYPE II OR UNSPEC TY 01/09/2016 ORENDER DO, RAZA S Ot 266.2 B-COMPLEX DEFIC NEC 01/09/2016 ORENDER DO, RAZA S Ot 268.9 VITAMIN D DEFICIENCY NOS 01/09/2016 ORENDER DO, RAZA S Ot 272.4 HYPERLIPIDEMIA NEC/NOS 01/09/2016 ORENDER DO, RAZA S Ot 719.40 JOINT PAIN-UNSPEC 01/09/2016 RAZA HARRIS DO S Ot 780.79 OTH MALAISE FATIGUE 01/09/2016 RAZA HARRIS DO S Ot 244.9 HYPOTHYROIDISM NOS 01/09/2016 NIRAV PADGETT MD Ot 599.82 INTRINSIC (URETHRA) SPHINCTER DEFICIENCY 01/09/2016 NIRAV PADGETT MD Ot 788.30 UNSPECIFIED URINARY INCONTINENCE 01/09/2016 NIRAV PADGETT MD Ot V72.84 EXAM PRE-OPERATIVE NOS 01/09/2016 NIRAV PADGETT MD Ot 596.51 HYPERTONICITY OF BLADDER 01/09/2016 NIRAV PADGETT MD Ot 599.82 INTRINSIC (URETHRA) SPHINCTER DEFICIENCY 01/09/2016 NIRAV PADGETT MD Ot 618.01 CYSTOCELE, MIDLINE 01/09/2016 NIRAV PADGETT MD Ot 788.20 RETENTION OF URINE NOS 01/09/2016 NIRAV PADGETT MD Ot V72.84 EXAM PRE-OPERATIVE NOS 01/09/2016 NIRAV PADGETT MD, Ot N32.81 OVERACTIVE BLADDER 01/09/2016 NIRAV PADGETT MD, Ot N36.42 INTRINSIC SPHINCTER DEFICIENCY (ISD) 01/09/2016 NIRAV PADGETT MD, Ot N81.10 CYSTOCELE, UNSPECIFIED 01/09/2016 NIRAV PADGETT MD, Ot R32 UNSPECIFIED URINARY INCONTINENCE 01/09/2016 NIRAV PADGETT MD, Ot Z53.09 PROC/TRTMT NOT CARRIED OUT BECAUSE OF CO 01/09/2016 MAGGY DONOVAN Ot 786.07 WHEEZING 01/09/2016 NIRAV PADGETT MD, Ot N32.81 OVERACTIVE BLADDER 01/09/2016 NIRAV PADGETT MD, Ot N36.42 INTRINSIC SPHINCTER DEFICIENCY (ISD) 01/09/2016 NIRAV PADGETT MD, Ot N81.10 CYSTOCELE, UNSPECIFIED 01/09/2016 NIRAV PADGETT MD, Ot R32 UNSPECIFIED URINARY INCONTINENCE 01/09/2016 NIRAV PADGETT MD, Ot Z01.818 ENCOUNTER FOR OTHER PREPROCEDURAL EXAMIN 01/09/2016 THERESE LOPEZ, SOPHIE Zavaleta Ot R07.9 CHEST PAIN, UNSPECIFIED 01/09/2016 Ot Z01.818 ENCOUNTER FOR OTHER PREPROCEDURAL EXAMIN 01/09/2016 DOLORESNDER DO, RAZA S Ot E03.9 HYPOTHYROIDISM, UNSPECIFIED 01/09/2016 ORENDER DO, RAZA S Ot E78.5 HYPERLIPIDEMIA, UNSPECIFIED 01/09/2016 ORENDER DO, RAZA S Ot M51.16 INTERVERTEBRAL DISC DISORDERS W RADICULO 01/22/2016 ORENDER DO, RAZA S Ot M51.86 OTHER INTERVERTEBRAL DISC DISORDERS, LUM 01/23/2016 ORENDER DO, RAZA S Ot M51.16 INTERVERTEBRAL DISC DISORDERS W RADICULO 02/05/2016 ORENDER DO, RAZA S Ot M51.16 INTERVERTEBRAL DISC DISORDERS W RADICULO 02/05/2016 ORENDER DO, RAZA S Ot M51.16 INTERVERTEBRAL DISC DISORDERS W RADICULO 02/07/2016 ORENDER DO, RAZA S Ot M51.86 OTHER INTERVERTEBRAL DISC DISORDERS, LUM 02/25/2016 ORENDER DO, RAZA S Ot M51.16 INTERVERTEBRAL DISC DISORDERS W RADICULO 02/28/2016 Ot 592.1 02/28/2016 Ot 789.09 04/04/2016 FLORIN JUNG MD Ot G89.4 CHRONIC PAIN SYNDROME 04/04/2016 FLORIN JUNG MD Ot M51.16 INTERVERTEBRAL DISC DISORDERS W RADICULO 04/04/2016 FLORIN JUNG MD Ot M53.3 SACROCOCCYGEAL DISORDERS, NOT ELSEWHERE 04/09/2016 FLORIN JUNG MD Ot G89.4 CHRONIC PAIN SYNDROME 04/09/2016 FLORIN JUNG MD Ot M51.16 INTERVERTEBRAL DISC DISORDERS W RADICULO 04/09/2016 FLORIN JUNG MD Ot M53.3 SACROCOCCYGEAL DISORDERS, NOT ELSEWHERE 06/28/2016 Ot 592.1 06/28/2016 Ot 789.09 07/09/2016 ORENDER DOALBERTORAZA S Ot E03.9 HYPOTHYROIDISM, UNSPECIFIED 07/29/2016 DOLORESNDER DOALBERTORAZA S Ot E03.9 HYPOTHYROIDISM, UNSPECIFIED 08/12/2016 ORENDER DO, RAZA S Ot E03.9 HYPOTHYROIDISM, UNSPECIFIED 08/21/2016 ORENDER DO, RAZA S Ot E03.9 HYPOTHYROIDISM, UNSPECIFIED 11/12/2016 ORENDER DO, RAZA S Ot E03.9 HYPOTHYROIDISM, UNSPECIFIED 11/12/2016 ORENDER DO, RAZA S Ot E11.65 TYPE 2 DIABETES MELLITUS WITH HYPERGLYCE 11/12/2016 DOLORESNDER DO, RAZA S Ot E83.42 HYPOMAGNESEMIA 11/12/2016 ORENDER DO, RAZA S Ot E87.1 HYPO-OSMOLALITY AND HYPONATREMIA 11/12/2016 ORENDER DO, RAZA S Ot E87.2 ACIDOSIS 11/12/2016 ORENDER DO, RAZA S Ot F17.210 NICOTINE DEPENDENCE, CIGARETTES, UNCOMPL 11/12/2016 ORENDER DO, RAZA S Ot J44.9 CHRONIC OBSTRUCTIVE PULMONARY DISEASE, U 11/12/2016 DOLORESNDER DO, RAZA S Ot R00.0 TACHYCARDIA, UNSPECIFIED 11/12/2016 ORENDER DO, RAZA S Ot Z79.899 OTHER ASSISTED (CURRENT) DRUG THERAPY 12/09/2016 DOLORESNDER DO, RAZA S Ot E11.9 TYPE 2 DIABETES MELLITUS WITHOUT COMPLIC 12/22/2016 ORENDER DO, RAZA S Ot E11.9 TYPE 2 DIABETES MELLITUS WITHOUT COMPLIC 12/27/2016 ORENDER DO, RAZA S Ot E11.9 TYPE 2 DIABETES MELLITUS WITHOUT COMPLIC 02/11/2017 DOLORESNDER , RAZA S Ot E03.9 HYPOTHYROIDISM, UNSPECIFIED 02/11/2017 DOLORESNDER DO, RAZA S Ot E11.65 TYPE 2 DIABETES MELLITUS WITH HYPERGLYCE 02/22/2017 NAHUM PARKER APRN Ot E03.9 HYPOTHYROIDISM, UNSPECIFIED 02/22/2017 NAHUM PARKER APRN Ot E11.40 TYPE 2 DIABETES MELLITUS WITH DIABETIC N 02/22/2017 NAHUM PARKER APRN Ot F32.9 MAJOR DEPRESSIVE DISORDER, SINGLE EPISOD 02/22/2017 NAHUM PARKER APRN Ot F41.9 ANXIETY DISORDER, UNSPECIFIED 02/22/2017 NAHUM PARKER APRN Ot J44.9 CHRONIC OBSTRUCTIVE PULMONARY DISEASE, U 02/22/2017 NAHUM PARKER APRN Ot K21.9 GASTRO-ESOPHAGEAL REFLUX DISEASE WITHOUT 02/22/2017 NAHUM PARKER APRN Ot M25.531 PAIN IN RIGHT WRIST 02/22/2017 NAHUM PARKER APRN Ot S60.211A CONTUSION OF RIGHT WRIST, INITIAL ENCOUN 02/22/2017 NAHUM PARKER APRN Ot W01.0XXA FALL SAME LEV FROM SLIP/TRIP W/O STRIKE 02/22/2017 NAHUM PARKER APRN Ot Z77.22 CNTCT W AND EXPSR TO ENVIRON TOBACCO SMO 02/22/2017 NAHUM PARKER APRN Ot Z79.84 ZINC PLATER (CURRENT) USE OF ORAL HYPOGLYC 02/22/2017 NAHUM PARKER APRN Ot Z85.41 PERSONAL HISTORY OF MALIGNANT NEOPLASM O 02/22/2017 NAHUM PARKER APRN Ot Z87.442 PERSONAL HISTORY OF URINARY CALCULI 02/22/2017 NAHUM PARKER APRN Ot Z87.828 PERSONAL HISTORY OF OTH (HEALED) PHYSICA 02/22/2017 NAHUM PARKER APRN Ot Z90.49 ACQUIRED ABSENCE OF OTHER SPECIFIED PART 02/22/2017 NAHUM PARKER APRN Ot Z90.710 ACQUIRED ABSENCE OF BOTH CERVIX AND UTER 02/28/2017 NAHUM PARKER APRN Ot E03.9 HYPOTHYROIDISM, UNSPECIFIED 02/28/2017 NAHUM PARKER APRN Ot E11.40 TYPE 2 DIABETES MELLITUS WITH DIABETIC N 02/28/2017 NAHUM PARKER APRN Ot F32.9 MAJOR DEPRESSIVE DISORDER, SINGLE EPISOD 02/28/2017 NAHUM PARKER APRN Ot F41.9 ANXIETY DISORDER, UNSPECIFIED 02/28/2017 NAHUM PARKER APRN Ot J44.9 CHRONIC OBSTRUCTIVE PULMONARY DISEASE, U 02/28/2017 NAHUM PARKER APRN Ot K21.9 GASTRO-ESOPHAGEAL REFLUX DISEASE WITHOUT 02/28/2017 NAHUM PARKER APRN Ot M25.531 PAIN IN RIGHT WRIST 02/28/2017 NAHUM PARKER APRN Ot S60.211A CONTUSION OF RIGHT WRIST, INITIAL ENCOUN 02/28/2017 NAHUM PARKER APRN Ot W01.0XXA FALL SAME LEV FROM SLIP/TRIP W/O STRIKE 02/28/2017 NAHUM PARKER APRN Ot Z77.22 CNTCT W AND EXPSR TO ENVIRON TOBACCO SMO 02/28/2017 NAHUM PARKER APRN Ot Z79.84 ZINC PLATER (CURRENT) USE OF ORAL HYPOGLYC 02/28/2017 NAHUM PARKER APRN Ot Z85.41 PERSONAL HISTORY OF MALIGNANT NEOPLASM O 02/28/2017 NAHUM PARKER APRN Ot Z87.442 PERSONAL HISTORY OF URINARY CALCULI 02/28/2017 NAHUM PARKER APRN Ot Z87.828 PERSONAL HISTORY OF OTH (HEALED) PHYSICA 02/28/2017 NAHUM PARKER APRN Ot Z90.49 ACQUIRED ABSENCE OF OTHER SPECIFIED PART 02/28/2017 NAHUM PARKER APRN Ot Z90.710 ACQUIRED ABSENCE OF BOTH CERVIX AND UTER 03/02/2017 DOLORESNDER DOALBERTORAZA S Ot E03.9 HYPOTHYROIDISM, UNSPECIFIED 03/02/2017 ORENDER DO RAZA S Ot E11.65 TYPE 2 DIABETES MELLITUS WITH HYPERGLYCE 03/06/2017 DOLORESNDER DO RAZA S Ot E03.9 HYPOTHYROIDISM, UNSPECIFIED 03/06/2017 ORENDER DO RAZA S Ot E11.65 TYPE 2 DIABETES MELLITUS WITH HYPERGLYCE Procedures Code Description Performed By Performed On 38.93 02/19/2011 45.16 02/19/2011 Results Test Result Range THYROID STIMULATING HORMONE - 07/08/16 13:42 THYROID STIMULATING HORMONE 29.23 u[iU]/mL 0.35-4.94 Serum or plasma thyroxine (T4) free measurement (mass/volume) - 07/08/16 13:42 Serum or plasma thyroxine (T4) free measurement (mass/volume) 0.92 ng/dL 0.70-1.48 Complete blood count (CBC) with automated white blood cell (WBC) differential - 11/10/16 13:33 Blood leukocytes automated count (number/volume) 9.5 10*3/uL 4.3-11.0 Blood erythrocytes automated count (number/volume) 5.74 10*6/uL 4.35-5.85 Venous blood hemoglobin measurement (mass/volume) 16.5 g/dL 11.5-16.0 Blood hematocrit (volume fraction) 48 % 35-52 Automated erythrocyte mean corpuscular volume 83 [foz_us] 80-99 Automated erythrocyte mean corpuscular hemoglobin (mass per erythrocyte) 29 pg 25-34 Automated erythrocyte mean corpuscular hemoglobin concentration measurement ( mass/volume) 35 g/dL 32-36 Automated erythrocyte distribution width ratio 13.1 % 10.0-14.5 Automated blood platelet count (count/volume) 243 10*3/uL 130-400 Automated blood platelet mean volume measurement 12.0 [foz_us] 7.4-10.4 Automated blood neutrophils/100 leukocytes 71 % 42-75 Automated blood lymphocytes/100 leukocytes 23 % 12-44 Blood monocytes/100 leukocytes 5 % 0-12 Automated blood eosinophils/100 leukocytes 0 % 0-10 Automated blood basophils/100 leukocytes 0 % 0-10 Blood neutrophils automated count (number/volume) 6.8 10*3 1.8-7.8 Blood lymphocytes automated count (number/volume) 2.2 10*3 1.0-4.0 Blood monocytes automated count (number/volume) 0.5 10*3 0.0-1.0 Automated eosinophil count 0.0 10*3/uL 0.0-0.3 Automated blood basophil count (count/volume) 0.0 10*3/uL 0.0-0.1 Comprehensive metabolic panel - 11/10/16 13:33 Serum or plasma sodium measurement (moles/volume) 130 mmol/L 135-145 Serum or plasma potassium measurement (moles/volume) 3.6 mmol/L 3.6-5.0 Serum or plasma chloride measurement (moles/volume) 99 mmol/L 98-107 Carbon dioxide 14 mmol/L 21-32 Serum or plasma anion gap determination (moles/volume) 17 mmol/L 5-14 Serum or plasma urea nitrogen measurement (mass/volume) 8 mg/dL 7-18 Serum or plasma creatinine measurement (mass/volume) 0.83 mg/dL 0.60-1.30 Serum or plasma urea nitrogen/creatinine mass ratio 10 NRG Serum or plasma creatinine measurement with calculation of estimated glomerular filtration rate > NRG Serum or plasma glucose measurement (mass/volume) 313 mg/dL 70-105 Serum or plasma calcium measurement (mass/volume) 9.4 mg/dL 8.5-10.1 Serum or plasma total bilirubin measurement (mass/volume) 0.4 mg/dL 0.1-1.0 Serum or plasma alkaline phosphatase measurement (enzymatic activity/volume) 124 U/L 40-136 Serum or plasma aspartate aminotransferase measurement (enzymatic activity/ volume) 11 U/L 5-34 Serum or plasma alanine aminotransferase measurement (enzymatic activity/volume ) 10 U/L 0-55 Serum or plasma protein measurement (mass/volume) 7.1 g/dL 6.4-8.2 Serum or plasma albumin measurement (mass/volume) 3.9 g/dL 3.2-4.5 Magnesium - 11/10/16 13:33 Magnesium 1.4 mg/dL 1.8-2.4 Serum or plasma amylase measurement (enzymatic activity/volume) - 11/10/16 13: 33 Serum or plasma amylase measurement (enzymatic activity/volume) 38 U /L 25-125 Lipase - 11/10/16 13:33 Lipase 18 U/L 8-78 Hemoglobin A1c - 11/10/16 13:33 Hemoglobin A1c 13.3 % 4.5-6.2 THYROID STIMULATING HORMONE - 11/10/16 13:33 THYROID STIMULATING HORMONE 0.04 u[iU]/mL 0.35-4.94 Serum or plasma thyroxine (T4) free measurement (mass/volume) - 11/10/16 13:33 Serum or plasma thyroxine (T4) free measurement (mass/volume) 1.77 ng/dL 0.70-1.48 Complete urinalysis with reflex to culture - 11/10/16 14:05 Urine color determination YELLOW NRG Urine clarity determination CLEAR NRG Urine pH measurement by test strip 5 5-9 Specific gravity of urine by test strip 1.025 1.016- 1.022 Urine protein assay by test strip, semi-quantitative 2+ NEGATIVE Urine glucose detection by automated test strip 4+ NEGATIVE Erythrocytes detection in urine sediment by light microscopy NEGATIVE NEGATIVE Urine ketones detection by automated test strip 4+ NEGATIVE Urine nitrite detection by test strip NEGATIVE NEGATIVE Urine total bilirubin detection by test strip NEGATIVE NEGATIVE Urine urobilinogen measurement by automated test strip (mass/volume) NORMAL NORMAL Urine leukocyte esterase detection by dipstick NEGATIVE NEGATIVE Automated urine sediment erythrocyte count by microscopy (number/high power field) NONE NRG Automated urine sediment leukocyte count by microscopy (number/high power field ) [HPF] NRG Bacteria detection in urine sediment by light microscopy TRACE NRG Squamous epithelial cells detection in urine sediment by light microscopy 5-10 NRG Crystals detection in urine sediment by light microscopy NONE NRG Casts detection in urine sediment by light microscopy NONE NRG Mucus detection in urine sediment by light microscopy NEGATIVE NRG Complete urinalysis with reflex to culture NO NRG Capillary blood glucose measurement by glucometer (mass/volume) - 11/10/16 14: 11 Capillary blood glucose measurement by glucometer (mass/volume) 297 mg/dL 70-110 Capillary blood glucose measurement by glucometer (mass/volume) - 11/10/16 16: 19 Capillary blood glucose measurement by glucometer (mass/volume) 356 mg/dL 70-110 Capillary blood glucose measurement by glucometer (mass/volume) - 11/10/16 20: 36 Capillary blood glucose measurement by glucometer (mass/volume) 235 mg/dL 70-110 Capillary blood glucose measurement by glucometer (mass/volume) - 11/11/16 05: 20 Capillary blood glucose measurement by glucometer (mass/volume) 234 mg/dL 70-110 Whole blood basic metabolic panel - 11/11/16 05:50 Serum or plasma sodium measurement (moles/volume) 134 mmol/L 135-145 Serum or plasma potassium measurement (moles/volume) 3.7 mmol/L 3.6-5.0 Serum or plasma chloride measurement (moles/volume) 106 mmol/L 98-107 Carbon dioxide 16 mmol/L 21-32 Serum or plasma anion gap determination (moles/volume) 12 mmol/L 5-14 Serum or plasma urea nitrogen measurement (mass/volume) 10 mg/dL 7-18 Serum or plasma creatinine measurement (mass/volume) 0.64 mg/dL 0.60-1.30 Serum or plasma urea nitrogen/creatinine mass ratio 16 NRG Serum or plasma creatinine measurement with calculation of estimated glomerular filtration rate > NRG Serum or plasma glucose measurement (mass/volume) 254 mg/dL 70-105 Serum or plasma calcium measurement (mass/volume) 8.3 mg/dL 8.5-10.1 Magnesium - 11/11/16 05:50 Magnesium 1.7 mg/dL 1.8-2.4 Capillary blood glucose measurement by glucometer (mass/volume) - 11/11/16 11: 04 Capillary blood glucose measurement by glucometer (mass/volume) 263 mg/dL 70-110 Capillary blood glucose measurement by glucometer (mass/volume) - 11/11/16 15: 59 Capillary blood glucose measurement by glucometer (mass/volume) 207 mg/dL 70-110 Capillary blood glucose measurement by glucometer (mass/volume) - 11/11/16 20: 53 Capillary blood glucose measurement by glucometer (mass/volume) 161 mg/dL 70-110 Capillary blood glucose measurement by glucometer (mass/volume) - 11/12/16 05: 05 Capillary blood glucose measurement by glucometer (mass/volume) 160 mg/dL 70-110 Whole blood basic metabolic panel - 11/12/16 06:30 Serum or plasma sodium measurement (moles/volume) 139 mmol/L 135-145 Serum or plasma potassium measurement (moles/volume) 3.4 mmol/L 3.6-5.0 Serum or plasma chloride measurement (moles/volume) 108 mmol/L 98-107 Carbon dioxide 20 mmol/L 21-32 Serum or plasma anion gap determination (moles/volume) 11 mmol/L 5-14 Serum or plasma urea nitrogen measurement (mass/volume) 5 mg/dL 7-18 Serum or plasma creatinine measurement (mass/volume) 0.58 mg/dL 0.60-1.30 Serum or plasma urea nitrogen/creatinine mass ratio 9 NRG Serum or plasma creatinine measurement with calculation of estimated glomerular filtration rate > NRG Serum or plasma glucose measurement (mass/volume) 192 mg/dL 70-105 Serum or plasma calcium measurement (mass/volume) 8.4 mg/dL 8.5-10.1 Capillary blood glucose measurement by glucometer (mass/volume) - 11/12/16 11: 25 Capillary blood glucose measurement by glucometer (mass/volume) 206 mg/dL 70-110 Whole blood basic metabolic panel - 02/05/17 14:49 Serum or plasma sodium measurement (moles/volume) 137 mmol/L 135-145 Serum or plasma potassium measurement (moles/volume) 4.0 mmol/L 3.6-5.0 Serum or plasma chloride measurement (moles/volume) 102 mmol/L 98-107 Carbon dioxide 25 mmol/L 21-32 Serum or plasma anion gap determination (moles/volume) 10 mmol/L 5-14 Serum or plasma urea nitrogen measurement (mass/volume) 13 mg/dL 7-18 Serum or plasma creatinine measurement (mass/volume) 0.69 mg/dL 0.60-1.30 Serum or plasma urea nitrogen/creatinine mass ratio 19 NRG Serum or plasma creatinine measurement with calculation of estimated glomerular filtration rate > NRG Serum or plasma glucose measurement (mass/volume) 80 mg/dL 70-105 Serum or plasma calcium measurement (mass/volume) 10.0 mg/dL 8.5-10.1 Serum or plasma thyroxine (T4) free measurement (mass/volume) - 02/05/17 14:49 Serum or plasma thyroxine (T4) free measurement (mass/volume) 1.86 ng/dL 0.70-1.48 THYROID STIMULATING HORMONE - 02/05/17 14:49 THYROID STIMULATING HORMONE 0.00 u[iU]/mL 0.35-4.94 Serum or plasma thyroxine (T4) free measurement (mass/volume) - 02/05/17 14:49 Serum or plasma thyroxine (T4) free measurement (mass/volume) 1.86 ng/dL 0.70-1.48 Hemoglobin A1c - 02/05/17 14:49 Hemoglobin A1c 6.7 % 4.5-6.2 Encounters ACCT No. Visit Date/Time Discharge Status Pt. 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 [facility] ER R WRIST INJ [id number] 02/05/2017 14:25:00 02/05/2017 23:59:59 CLS Outpatient KIMBERLY DO RAZA S [facility] LAB E11.65, HYPOTHYROIDISM [id number] 12/28/2016 13:00:00 12/28/2016 23:59:59 CLS Preadmit ORENDER DO RAZA S [facility] DSME TYPE 2 DIABETES [id number] 12/08/2016 17:43:00 12/27/2016 02:34:00 DIS Outpatient ORENDER DO RAZA S [facility] DSME TYPE 2 DIABETES [id number] 11/10/2016 12:15:00 11/12/2016 13:40:00 DIS Inpatient ORENDER DO, RAZA S [facility] 4TH NEW ONSET DIABETES UNCONTROLLED,DEHYDRATION [id number] 07/08/2016 13:26:00 07/08/2016 23:59:59 CLS Outpatient ORENDER DO, RAZA S [facility] LAB HYPOTHYROIDISM [id number] 04/04/2016 07:15:00 04/04/2016 08:27:00 DIS Outpatient FLORIN JUNG MD [facility] CARD SACROCOCCYGEAL DISORDERS , NOT ELSE [id number] 02/07/2016 12:57:00 02/07/2016 14:45:00 DIS Outpatient RAZA HARRIS DO [facility] REHAB LUMBAR BULGING DISC [id number] 01/04/2016 08:57:00 01/04/2016 10:20:00 DIS Outpatient FLORIN JUNG MD [facility] CARD DISC DISORDER LUMBAR [id number] 12/31/2015 12:51:00 12/31/2015 23:59:59 CLS Outpatient RAZA HARRIS DO [facility] RAD DISC DISEASE /C RADICOPATHY [id number] 10/08/2015 15:31:00 10/08/2015 17:02:00 DIS Emergency ROM TERESA Maximino [facility] ER ABD PAIN;BACK PAIN [id number] 09/30/2015 17:06:00 09/30/2015 20:08:00 DIS Emergency KORTNEY MÉNDEZ [facility] ER ABD PAIN [id number] 06/08/2015 12:10:00 06/08/2015 23:59:59 CLS Outpatient RAZA HARRIS DO [facility] LAB HYPOTHYROIDISM, HYPERLIPIDEMIA [id number] 05/09/2015 12:07:00 05/09/2015 19:10:00 DIS Outpatient SOPHIE SALEH MD [facility] CATH ABNORMAL STRESS, CP, TOBACCOISM,HLP [id number] 05/02/2015 13:28:00 05/02/2015 23:59:59 CLS Outpatient EAN LOPEZ, GURMEET Phillips [facility] SDC HX ULCERS;GERD;UPPER GASTRIC PAIN [id number] 04/30/2015 07:49:00 04/30/2015 23:59:59 CLS Outpatient SOPHIE SALEH MD [facility] CARD CHEST PAIN [id number] 03/21/2015 20:29:00 03/22/2015 11:10:00 DIS Inpatient RAZA HARRIS DO [facility] 4TH CHEST PAIN, EPIGASTRIC TIP,COPD EXACERBATION [id number] 01/30/2015 08:31:00 02/01/2015 15:35:00 DIS Outpatient NIRAV PADGETT MD [facility] CYSTOCELE/URINARY INCONT. /ISD [id number] 01/23/2015 08:03:00 01/23/2015 23:59:59 CLS Outpatient NIRAV PADGETT MD [facility] CYSTOCELE/URINARY INCONT. /ISD [id number] 01/16/2015 10:49:00 01/16/2015 23:59:59 CLS Outpatient NIRAV PADGETT MD [facility] PREOP INCONTINENCE/ISD/OVER ACTIVE BLADDER [id number] 01/11/2015 15:51:00 01/11/2015 17:23:00 DIS Emergency NAHUM PARKER APRN [facility] ER FACIAL SWELLING [id number] 12/25/2014 09:00:00 12/25/2014 09:00:00 CAN Outpatient NIRAV PADGETT MD [facility] PREOP CYSTOCELE/INCONTINENCE/ ISD [id number] 12/22/2014 09:57:00 12/22/2014 23:59:59 CLS Outpatient MAGGY DONOVAN [facility] RAD DYSPNEA, WHEEZING [id number] 11/21/2014 06:56:00 11/21/2014 10:38:00 DIS Outpatient NIRAV PADGETT MD [facility] INCONTINENCE ISD [id number] 11/07/2014 06:21:00 11/07/2014 07:30:00 DIS Outpatient NIRAV PADGETT MD [facility] INTRINSIC SPHINCTER DEFICIENCY;INCONTINENCE [id number] 11/06/2014 12:00:00 11/06/2014 23:59:59 CLS Outpatient NIRAV PADGETT MD [facility] PREOP INTRINSIC SPHINCTER DEFICIENCY;INCONTINENCE [id number] 09/21/2014 14:01:00 09/21/2014 23:59:59 CLS Outpatient RAZA HARRIS DO [facility] LAB HYPOTHYROIDISM [id number] 08/08/2014 15:12:00 08/08/2014 18:05:00 DIS Emergency KORTNEY MÉNDEZ [facility] ER DIZZINESS,FALLS [id number] 08/03/2014 09:44:00 08/03/2014 23:59:59 CLS Outpatient ROSI HARRIS DOLINE S [facility] CARD TACHYCARDIA, MURMUR [id number] 07/25/2014 07:39:00 07/25/2014 23:59:59 CLS Outpatient NARCISAER RAZA TREVIZO S [facility] LAB DMII VIT D DEF B12 DEF [id number] 01/24/2014 14:32:00 01/24/2014 23:59:59 CLS Outpatient RAZA HARRIS DO S [facility] LAB HYPOKALCEMIA [id number] 01/06/2014 14:49:00 01/06/2014 23:59:59 CLS Outpatient 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 M 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 [facility] LAB HTN [id number] 12/16/2013 13:35:00 12/16/2013 23:59:59 CLS Outpatient NIRAV PADGETT MD [facility] RAD STONES [id number] 11/15/2013 14:24:00 12/08/2013 00:01:00 DIS Outpatient RAZA HARRIS DO S [facility] REHAB LUMBAR DDD R LEG RADICULOPATHY [id number] 12/05/2013 13:24:00 12/05/2013 23:59:59 CLS Outpatient NARCISAER ROSI TREVIZOLINE S [facility] LAB HYPOKALEMIA [id number] 11/30/2013 11:27:00 11/30/2013 23:59:59 CLS Outpatient ROSI HARRIS DOLINE S [facility] LAB HYPOKALEMIA, ELEVATED WBC [id number] 11/28/2013 12:52:00 11/28/2013 18:06:00 DIS Emergency DONNA MARCOS MD [facility] ER ALLERGIC REACTION TO MEDS [id number] 10/16/2013 15:21:00 10/16/2013 16:18:00 DIS Emergency KORTNEY MÉNDEZ [facility] ER R LEG PAIN [id number] 07/11/2013 12:49:00 07/11/2013 23:59:59 CLS Outpatient RAZA HARRIS DO [facility] LAB DMII,HYPOTHYROIDISM ,A ARTHRITIS,HYPERLIPIDEMIA,VIT [id number] 05/01/2013 08:12:00 05/03/2013 14:35:00 DIS Inpatient RAZA HARRIS DO [facility] 4TH ABDOMINAL PAIN [id number] 04/28/2013 21:58:00 04/29/2013 01:13:00 DIS Emergency HEMANT LOPEZ, DONNA Wallace [facility] ER OD [id number] 04/12/2013 13:02:00 04/12/2013 23:59:59 CLS Outpatient RAZA HARRIS DO [facility] LAB HYPERLIPIDEMIA, FATIGUE,DMII [id number] 01/31/2013 14:15:00 03/01/2013 08:45:00 DIS Outpatient ARIS LI DO [facility] REHAB CERVICAL RADICULOPATHY;CERVICALGIA [id number] 10/18/2012 18:13:00 10/18/2012 22:35:00 DIS Emergency KORTNEY MÉNDEZ [facility] ER VOMITING,ABD PAIN, HEADACHES [id number] 10/04/2012 08:30:00 10/04/2012 11:30:00 DIS Outpatient GURMEET MCKOY MD [facility] SDC VOMITING; ABD. PAIN [id number] 09/29/2012 08:22:00 09/29/2012 23:59:59 CLS Outpatient GURMEET MCKOY MD [facility] PREOP VOMITING; ABD PAIN [id number] 09/19/2012 12:05:00 09/19/2012 14:50:00 DIS Emergency TERESA CUETO DO [facility] ER VOMITING STOMACH PAIN [id number] 05/01/2015 13:58:00 Document Registration [id number] 06/01/2014 05:53:00 Document Registration [id number] 05/17/2014 14:32:00 Document Registration [id number] 05/17/2014 14:31:00 Document Registration [id number] 05/17/2014 14:31:00 Document Registration [id number] 05/17/2014 14:30:00 Document Registration [id number] 05/17/2014 14:30:00 Document Registration [id number] 05/17/2014 14:30:00 Document Registration [id number] 06/26/2012 19:09:00 Document Registration [id number] 06/16/2012 12:39:00 Document Registration [id number] 03/08/2012 08:40:00 Document Registration [id number] 03/02/2012 10:38:00 Document Registration [id number] 03/02/2012 10:09:00 Document Registration [id number] 01/21/2012 14:50:00 Document Registration [id number] 12/30/2011 12:16:00 Document Registration [id number] 10/29/2011 05:39:00 Document Registration [id number] 10/22/2011 12:36:00 Document Registration [id number] 09/25/2011 15:08:00 Document Registration [id number] 09/17/2011 05:41:00 Document Registration [id number] 09/11/2011 07:57:00 Document Registration [id number] 08/29/2011 15:42:00 Document Registration [id number] 08/13/2011 09:15:00 Document Registration [id number] 07/18/2011 06:55:00 Document Registration [id number] 06/30/2011 14:13:00 Document Registration [id number] 05/14/2011 09:43:00 Document Registration [id number] 04/08/2011 12:08:00 Document Registration [id number] 02/18/2011 15:02:00 Document Registration [id number] 01/23/2011 14:37:00 Document Registration [id number] 12/26/2010 13:55:00 Document Registration [id number] 11/11/2010 20:55:00 Document Registration [id number] 07/23/2010 12:20:00 Document Registration [id number] 07/10/2010 15:57:00 Document Registration [id number] 06/20/2010 10:56:00 Document Registration [id number] 03/27/2010 12:07:00 Document Registration [id number] 03/21/2010 13:46:00 Document Registration [id number] 10/19/2009 14:41:00 Document Registration [id number] 06/27/2009 13:23:00 Document Registration [id number] 05/10/2009 10:42:00 Document Registration [id number] 01/22/2009 14:37:00 Document Registration [id number] 01/04/2009 11:48:00 Document Registration [id number] 01/01/2009 16:25:00 Document Registration [id number] 09/07/2007 07:25:00 Document Registration
[2017-04-26] MEDS ORDERED: methylPREDNISolone 125 MG (Solu-MEDROL) VIAL IV STA (19:32)
[2017-04-26] MEDS ORDERED: FAMOTIDINE 20MG/2ML IV (PEPCID) IVP ONE (19:45)
[2017-04-26 20:05] LABS: BASOPHILS # (AUTO) 0.1 10^3/uL (0.0-0.1); BASOPHILS % (AUTO) 1 % (0-10); EOSINOPHILS % (AUTO) 0 % (0-10); HEMATOCRIT 42 % (35-52); HEMOGLOBIN 14.2 G/DL (11.5-16.0); LYMPHOCYTES # (AUTO) 4.5 X 10^3 (1.0-4.0); LYMPHOCYTES % (AUTO) 41 % (12-44); MEAN CORPUSCULAR HEMOGLOBIN 31 PG (25-34); MEAN CORPUSCULAR HGB CONC 34 G/DL (32-36); MEAN CORPUSCULAR VOLUME 92 FL (80-99); MEAN PLATELET VOLUME 10.8 FL (7.4-10.4); MONOCYTES # (AUTO) 0.6 X 10^3 (0.0-1.0); MONOCYTES % (AUTO) 5 % (0-12); NEUTROPHILS # (AUTO) 5.9 X 10^3 (1.8-7.8); NEUTROPHILS % (AUTO) 53 % (42-75); PLATELET COUNT 294 10^3/uL (130-400); RED BLOOD COUNT 4.53 10^6/uL (4.35-5.85); RED CELL DISTRIBUTION WIDTH 14.5 % (10.0-14.5); WHITE BLOOD COUNT 11.1 10^3/uL (4.3-11.0)
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
[2017-04-26 20:22] LABS: BUN/CREATININE RATIO 26; CALCIUM 9.1 MG/DL (8.5-10.1); CARBON DIOXIDE 28 MMOL/L (21-32); CHLORIDE 103 MMOL/L (98-107); CREATININE SERUM 0.68 MG/DL (0.60-1.30); GFR ESTIMATED > 60; GLUCOSE 108 MG/DL (70-105); POTASSIUM 3.6 MMOL/L (3.6-5.0); SODIUM 142 MMOL/L (135-145)
[2017-04-26 20:25] LABS: ERYTHROCYTE SEDIMENTATION RATE 11 MM/HR (0-30)
[2017-04-26] MEDS ORDERED: FAMO40TA72 PO (20:34)
[2017-04-26] MEDS ORDERED: PRED5TAB PO (20:34)
[2017-04-26] MEDS ORDERED: HYDR50CA PO (20:34)
[2017-04-26] MEDS ORDERED: [UNRECOGNIZED DRUG - CODE] TP (20:34)
[2017-04-26] MEDS ORDERED: CLOB15CR3 TP (20:34)
[2017-04-26 20:41] VITALS: BP 140/90
== END 2017-04-26 20:41 | disposition home or self-care (01) ==
LOC: EDUNIT# 18:26 → ER 18:27
DX: L23.89 Allergic contact dermatitis due to other agents (principal); J44.9 Chronic obstructive pulmonary disease, unspecified; K21.9 Gastro-esophageal reflux disease without esophagitis; F41.9 Anxiety disorder, unspecified; F32.9 Major depressive disorder, single episode, unspecified; E03.9 Hypothyroidism, unspecified; E11.9 Type 2 diabetes mellitus without complications; F12.10 Cannabis abuse, uncomplicated; Z87.440 Personal history of urinary (tract) infections; Z87.19 Personal history of other diseases of the digestive system; Z85.41 Personal history of malignant neoplasm of cervix uteri; Z77.22 Contact with and (suspected) exposure to environmental tobacco smoke (acute) (chronic); Z90.49 Acquired absence of other specified parts of digestive tract; Z90.710 Acquired absence of both cervix and uterus; Z79.84 Long term (current) use of oral hypoglycemic drugs
CPT/HCPCS: 36415; 80048; 85025; 85652; 99282

== ENCOUNTER → 2017-05-11 | Outpatient (CLI) | payer MEDICARE, MEDICAID ==
[~2017-05-11] MED LIST changes: +CLOB15CR3 TP; +FAMO40TA72 PO; +HYDR50CA PO; +PRED5TAB PO; +[UNRECOGNIZED DRUG - CODE] TP
[2017-05-11 13:13] LABS: FREE T4 (FREE THYROXINE) 1.71 NG/DL (0.70-1.48)
== END ==
LOC: LAB 12:16
PROVIDERS: ATTEND Family Medicine
DX: E03.9 Hypothyroidism, unspecified (principal); E11.65 Type 2 diabetes mellitus with hyperglycemia
CPT/HCPCS: 36415; 83036; 84439; 84443

== ENCOUNTER → 2018-02-22 | Outpatient (CLI) | payer MEDICARE, MEDICAID ==
[~2018-02-22] MED LIST changes: +METR-197 PO; -METR500T21 PO; +TRAZ-190 PO; -TRAZ100T92 PO
[2018-02-22 12:54] LABS: ALANINE AMINOTRANSFERASE 25 U/L (0-55); ALKALINE PHOSPHATASE 76 U/L (40-136); BILIRUBIN,TOTAL 0.2 MG/DL (0.1-1.0); BUN/CREATININE RATIO 22; CALCIUM 9.1 MG/DL (8.5-10.1); CARBON DIOXIDE 27 MMOL/L (21-32); CHLORIDE 104 MMOL/L (98-107); CREATININE SERUM 0.69 MG/DL (0.60-1.30); GFR ESTIMATED > 60; GLUCOSE 97 MG/DL (70-105); POTASSIUM 3.8 MMOL/L (3.6-5.0); SODIUM 141 MMOL/L (135-145); TOTAL PROTEIN 6.8 GM/DL (6.4-8.2)
== END ==
LOC: LAB 12:18
PROVIDERS: ATTEND Family Medicine
DX: E11.9 Type 2 diabetes mellitus without complications (principal); I10 Essential (primary) hypertension; E78.5 Hyperlipidemia, unspecified
CPT/HCPCS: 36415; 80053; 83036

== ENCOUNTER → 2018-05-27 | Outpatient (CLI) | payer MEDICARE, MEDICAID ==
[~2018-05-27] MED LIST changes: +METR-145 PO; -METR-197 PO
[2018-05-27 14:59] LABS: ALANINE AMINOTRANSFERASE 18 U/L (0-55); ALBUMIN 4.3 GM/DL (3.2-4.5); ALKALINE PHOSPHATASE 82 U/L (40-136); BILIRUBIN,TOTAL 0.3 MG/DL (0.1-1.0); BUN/CREATININE RATIO 18; CALCIUM 9.3 MG/DL (8.5-10.1); CARBON DIOXIDE 22 MMOL/L (21-32); CHLORIDE 105 MMOL/L (98-107); CREATININE SERUM 0.83 MG/DL (0.60-1.30); GFR ESTIMATED > 60; GLUCOSE 145 MG/DL (70-105); POTASSIUM 4.2 MMOL/L (3.6-5.0); SODIUM 137 MMOL/L (135-145); TOTAL PROTEIN 6.9 GM/DL (6.4-8.2)
== END ==
LOC: LAB 14:28
PROVIDERS: ATTEND Family Medicine
DX: E11.65 Type 2 diabetes mellitus with hyperglycemia (principal)
CPT/HCPCS: 36415; 80053; 83036

== ENCOUNTER → 2018-05-31 | Outpatient (CLI) | payer MEDICARE, MEDICAID ==
[2018-05-31 15:10] LABS: BASOPHILS % (AUTO) 0 % (0-10); EOSINOPHILS % (AUTO) 0 % (0-10); HEMATOCRIT 41 % (35-52); HEMOGLOBIN 13.3 G/DL (11.5-16.0); LYMPHOCYTES # (AUTO) 3.4 X 10^3 (1.0-4.0); LYMPHOCYTES % (AUTO) 41 % (12-44); MEAN CORPUSCULAR HEMOGLOBIN 30 PG (25-34); MEAN CORPUSCULAR HGB CONC 33 G/DL (32-36); MEAN CORPUSCULAR VOLUME 92 FL (80-99); MEAN PLATELET VOLUME 10.8 FL (7.4-10.4); MONOCYTES # (AUTO) 0.5 X 10^3 (0.0-1.0); MONOCYTES % (AUTO) 6 % (0-12); NEUTROPHILS # (AUTO) 4.3 X 10^3 (1.8-7.8); NEUTROPHILS % (AUTO) 53 % (42-75); PLATELET COUNT 250 10^3/uL (130-400); RED CELL DISTRIBUTION WIDTH 13.2 % (10.0-14.5); WHITE BLOOD COUNT 8.2 10^3/uL (4.3-11.0)
[2018-05-31 15:54] LABS: FREE T4 (FREE THYROXINE) 0.94 NG/DL (0.70-1.48)
== END ==
LOC: LAB 14:40
PROVIDERS: ATTEND Family Medicine
DX: E03.9 Hypothyroidism, unspecified (principal); E55.9 Vitamin D deficiency, unspecified; R53.83 Other fatigue; R10.13 Epigastric pain
CPT/HCPCS: 36415; 82150; 82306; 83690; 84439; 84443; 85025

== ENCOUNTER → 2018-09-02 | Outpatient (CLI) | payer MEDICARE, MEDICAID ==
[2018-09-02 13:53] LABS: ALANINE AMINOTRANSFERASE 22 U/L (0-55); ALKALINE PHOSPHATASE 101 U/L (40-136); BILIRUBIN,TOTAL 0.2 MG/DL (0.1-1.0); BUN/CREATININE RATIO 21; CALCIUM 9.3 MG/DL (8.5-10.1); CARBON DIOXIDE 24 MMOL/L (21-32); CHLORIDE 102 MMOL/L (98-107); CREATININE SERUM 0.73 MG/DL (0.60-1.30); GFR ESTIMATED > 60; GLUCOSE 202 MG/DL (70-105); POTASSIUM 3.8 MMOL/L (3.6-5.0); SODIUM 137 MMOL/L (135-145)
[2018-09-07 17:14] LABS: FREE T4 (FREE THYROXINE) 1.13 NG/DL (0.70-1.48)
== END ==
LOC: LAB 13:17
PROVIDERS: ATTEND Family Medicine
DX: E11.65 Type 2 diabetes mellitus with hyperglycemia (principal); E55.9 Vitamin D deficiency, unspecified
CPT/HCPCS: 36415; 80053; 82306; 83036; 84439; 84443

== ENCOUNTER → 2018-12-08 | Outpatient (CLI) | payer MEDICARE, MEDICAID ==
[~2018-12-08] MED LIST changes: -DULO60CA58 PO; +DULO60CA59 PO
[2018-12-08 12:37] LABS: BASOPHILS % (AUTO) 0 % (0-10); EOSINOPHILS % (AUTO) 0 % (0-10); HEMATOCRIT 42 % (35-52); HEMOGLOBIN 13.8 G/DL (11.5-16.0); LYMPHOCYTES # (AUTO) 2.8 X 10^3 (1.0-4.0); LYMPHOCYTES % (AUTO) 36 % (12-44); MEAN CORPUSCULAR HEMOGLOBIN 30 PG (25-34); MEAN CORPUSCULAR HGB CONC 33 G/DL (32-36); MEAN CORPUSCULAR VOLUME 90 FL (80-99); MEAN PLATELET VOLUME 10.6 FL (7.4-10.4); MONOCYTES # (AUTO) 0.5 X 10^3 (0.0-1.0); MONOCYTES % (AUTO) 7 % (0-12); NEUTROPHILS # (AUTO) 4.6 X 10^3 (1.8-7.8); NEUTROPHILS % (AUTO) 57 % (42-75); PLATELET COUNT 265 10^3/uL (130-400); RED CELL DISTRIBUTION WIDTH 14.2 % (10.0-14.5)
[2018-12-08 13:03] LABS: ALANINE AMINOTRANSFERASE 29 U/L (0-55); ALBUMIN 4.3 GM/DL (3.2-4.5); ALKALINE PHOSPHATASE 105 U/L (40-136); BILIRUBIN,TOTAL 0.2 MG/DL (0.1-1.0); BUN/CREATININE RATIO 19; CALCIUM 9.5 MG/DL (8.5-10.1); CARBON DIOXIDE 26 MMOL/L (21-32); CHLORIDE 101 MMOL/L (98-107); CHOLESTEROL 209 MG/DL (< 200); GFR ESTIMATED > 60; GLUCOSE 165 MG/DL (70-105); HDL CHOLESTEROL 68 MG/DL (40-60); SODIUM 138 MMOL/L (135-145); TRIGLYCERIDES 184 MG/DL (<150); VLDL CHOLESTEROL 37 MG/DL (5-40)
[2018-12-08 13:24] LABS: FREE T4 (FREE THYROXINE) 1.41 NG/DL (0.70-1.48)
== END ==
LOC: LAB 12:13
PROVIDERS: ATTEND Family Medicine
DX: E03.9 Hypothyroidism, unspecified (principal); E11.65 Type 2 diabetes mellitus with hyperglycemia; E78.2 Mixed hyperlipidemia; D51.9 Vitamin B12 deficiency anemia, unspecified
CPT/HCPCS: 36415; 80053; 80061; 82607; 83036; 84439; 84443; 85025

== ENCOUNTER → 2019-04-11 | Outpatient (CLI) | payer MEDICARE, MEDICAID ==
[~2019-04-11] MED LIST changes: -AMPH20CA PO; -ARIP5TAB20 PO; +ARIP5TAB57 PO; +DEXT20CA4 PO; +METF500T19 PO; -METF500T8 PO
[2019-04-11 13:56] LABS: ALANINE AMINOTRANSFERASE 16 U/L (0-55); ALBUMIN 4.1 GM/DL (3.2-4.5); ALKALINE PHOSPHATASE 115 U/L (40-136); BILIRUBIN,TOTAL 0.2 MG/DL (0.1-1.0); BUN/CREATININE RATIO 20; CALCIUM 8.9 MG/DL (8.5-10.1); CARBON DIOXIDE 26 MMOL/L (21-32); CHLORIDE 105 MMOL/L (98-107); CREATININE SERUM 0.76 MG/DL (0.60-1.30); GFR ESTIMATED > 60; GLUCOSE 108 MG/DL (70-105); SODIUM 139 MMOL/L (135-145); TOTAL PROTEIN 7.1 GM/DL (6.4-8.2)
== END ==
LOC: LAB 13:13
PROVIDERS: ATTEND Nurse Practitioner Family
DX: R73.9 Hyperglycemia, unspecified (principal)
CPT/HCPCS: 36415; 80053; 83036

== ENCOUNTER → 2019-04-28 | Outpatient (CLI) | payer MEDICARE, MEDICAID ==
--- NOTE | 2019-04-28 14:33 | Diagnostic Imaging Report ---
PROCEDURE: US right lower extremity venous. TECHNIQUE: Multiple real-time grayscale images were obtained over the right lower extremity in various projections. Additional spectral analysis and color Doppler duplex images were also obtained. INDICATION: Right leg pain. FINDINGS: There is no evidence of right lower extremity DVT. Right lower extremity deep venous system shows normal compressibility with normal response to augmentation and Valsalva. No fluid collection or mass is detected. IMPRESSION: No evidence of right lower extremity DVT. Dictated by: Dictated on workstation # [id number]
--- NOTE | 2019-04-28 14:38 | Diagnostic Imaging Report ---
INDICATION: Right leg pain. Time of exam: 2:21 PM Frontal and lateral views of the right tibia and fibula were obtained. Alignment at the knee and ankle is normal. The tibia and fibula appear to be intact. No fractures are identified. Soft tissues are unremarkable. IMPRESSION: No acute abnormality detected. Report was called to Olivia/chief quality officer of Aliza Gunderson APRN by vicente at 2:37 p.m. Dictated by: Dictated on workstation # [id number]
== END ==
LOC: RAD 13:41
PROVIDERS: ATTEND Nurse Practitioner Family
DX: M79.604 Pain in right leg (principal)
CPT/HCPCS: 73590

== ENCOUNTER → 2019-07-05 | Outpatient (CLI) | payer MEDICARE, MEDICAID ==
[~2019-07-05] MED LIST changes: +ACHYD1T PO; -HYDR-3820 PO; -MECL-106 PO; +MECL-149 PO; -TRAZ-190 PO; +TRAZ-227 PO
--- NOTE | 2019-07-05 14:55 | Diagnostic Imaging Report ---
INDICATION: Right anterolateral rib deformity for 3 weeks. TIME OF EXAM: 2:38 PM. TECHNIQUE: Multiple views of the right ribs were obtained. A BB marker was placed at the area of deformity. FINDINGS: No rib mass or deformity is identified. No displaced rib fracture is identified. The right lung is clear. No infiltrate, effusion, or pneumothorax is identified. IMPRESSION: No abnormality is detected. Dictated by: Dictated on workstation # [id number]
== END ==
LOC: RAD 14:03
PROVIDERS: ATTEND Family Medicine
DX: M95.4 Acquired deformity of chest and rib (principal)
CPT/HCPCS: 71100

== ENCOUNTER → 2019-08-10 | Outpatient (CLI) | payer MEDICARE, MEDICAID ==
[2019-08-10 14:05] LABS: BASOPHILS % (AUTO) 0 % (0-10); EOSINOPHILS % (AUTO) 0 % (0-10); HEMATOCRIT 45 % (35-52); HEMOGLOBIN 14.7 G/DL (11.5-16.0); LYMPHOCYTES % (AUTO) 30 % (12-44); MEAN CORPUSCULAR HEMOGLOBIN 30 PG (25-34); MEAN CORPUSCULAR HGB CONC 33 G/DL (32-36); MEAN CORPUSCULAR VOLUME 90 FL (80-99); MEAN PLATELET VOLUME 10.3 FL (7.4-10.4); MONOCYTES # (AUTO) 0.5 X 10^3 (0.0-1.0); MONOCYTES % (AUTO) 5 % (0-12); NEUTROPHILS # (AUTO) 6.4 X 10^3 (1.8-7.8); NEUTROPHILS % (AUTO) 65 % (42-75); PLATELET COUNT 257 10^3/uL (130-400); RED CELL DISTRIBUTION WIDTH 13.9 % (10.0-14.5); WHITE BLOOD COUNT 9.9 10^3/uL (4.3-11.0)
[2019-08-10 14:24] LABS: ALANINE AMINOTRANSFERASE 11 U/L (0-55); ALBUMIN 4.4 GM/DL (3.2-4.5); ALKALINE PHOSPHATASE 116 U/L (40-136); BILIRUBIN,TOTAL 0.3 MG/DL (0.1-1.0); BUN/CREATININE RATIO 12; CALCIUM 9.4 MG/DL (8.5-10.1); CARBON DIOXIDE 28 MMOL/L (21-32); CHLORIDE 101 MMOL/L (98-107); CHOLESTEROL 257 MG/DL (< 200); CREATININE SERUM 0.78 MG/DL (0.60-1.30); GFR ESTIMATED > 60; GLUCOSE 127 MG/DL (70-105); HDL CHOLESTEROL 60 MG/DL (40-60); POTASSIUM 4.2 MMOL/L (3.6-5.0); SODIUM 138 MMOL/L (135-145); TOTAL PROTEIN 7.4 GM/DL (6.4-8.2); TRIGLYCERIDES 297 MG/DL (<150); VLDL CHOLESTEROL 59 MG/DL (5-40)
[2019-08-10 14:45] LABS: FREE T4 (FREE THYROXINE) 0.61 NG/DL (0.70-1.48)
== END ==
LOC: LAB 13:43
PROVIDERS: ATTEND Family Medicine
DX: E11.65 Type 2 diabetes mellitus with hyperglycemia (principal); I10 Essential (primary) hypertension
CPT/HCPCS: 36415; 80053; 80061; 83036; 84439; 84443; 85025

== ENCOUNTER → 2020-01-03 | Outpatient (CLI) | payer MEDICARE, MEDICAID ==
[~2020-01-03] MED LIST changes: +METF-865 PO; -METF500T19 PO
[2020-01-03 12:21] LABS: ALBUMIN 4.1 GM/DL (3.2-4.5); CHLORIDE 104 MMOL/L (98-107); POTASSIUM 3.7 MMOL/L (3.6-5.0); SODIUM 138 MMOL/L (135-145)
[2020-01-03 12:22] LABS: CALCIUM 8.8 MG/DL (8.5-10.1)
[2020-01-03 12:23] LABS: GLUCOSE 174 MG/DL (70-105); TOTAL PROTEIN 6.8 GM/DL (6.4-8.2)
[2020-01-03 12:24] LABS: CARBON DIOXIDE 25 MMOL/L (21-32)
[2020-01-03 12:25] LABS: BILIRUBIN,TOTAL 0.4 MG/DL (0.1-1.0)
[2020-01-03 12:27] LABS: ALKALINE PHOSPHATASE 94 U/L (40-136); CREATININE SERUM 0.73 MG/DL (0.60-1.30); GFR ESTIMATED > 60
[2020-01-03 12:28] LABS: BUN/CREATININE RATIO 16
[2020-01-03 12:30] LABS: ALANINE AMINOTRANSFERASE 15 U/L (0-55)
[2020-01-05 13:53] LABS: FREE T4 (FREE THYROXINE) 1.32 NG/DL (0.70-1.48)
== END ==
LOC: LAB 11:46
PROVIDERS: ATTEND Family Medicine
DX: E11.65 Type 2 diabetes mellitus with hyperglycemia (principal); I10 Essential (primary) hypertension
CPT/HCPCS: 36415; 80053; 83036; 84439; 84443

== ENCOUNTER → 2020-04-20 | Outpatient (CLI) | payer MEDICARE, MEDICAID ==
[2020-04-20 14:25] LABS: BASOPHILS % (AUTO) 0 % (0-10); EOSINOPHILS % (AUTO) 0 % (0-10); HEMATOCRIT 43 % (35-52); HEMOGLOBIN 14.1 g/dL (11.5-16.0); LYMPHOCYTES # (AUTO) 2.9 10^3/uL (1.0-4.0); LYMPHOCYTES % (AUTO) 25 % (12-44); MEAN CORPUSCULAR HEMOGLOBIN 30 pg (25-34); MEAN CORPUSCULAR HGB CONC 33 g/dL (32-36); MEAN CORPUSCULAR VOLUME 91 fL (80-99); MEAN PLATELET VOLUME 10.1 fL (9.0-12.2); MONOCYTES # (AUTO) 0.6 10^3/uL (0.0-1.0); MONOCYTES % (AUTO) 6 % (0-12); NEUTROPHILS # (AUTO) 7.8 10^3/uL (1.8-7.8); NEUTROPHILS % (AUTO) 69 % (42-75); PLATELET COUNT 250 10^3/uL (130-400); WHITE BLOOD COUNT 11.3 10^3/uL (4.3-11.0)
[2020-04-20 14:46] LABS: ALANINE AMINOTRANSFERASE 38 U/L (0-55); ALBUMIN 4.2 GM/DL (3.2-4.5); ALKALINE PHOSPHATASE 80 U/L (40-136); BILIRUBIN,TOTAL 0.4 MG/DL (0.1-1.0); BUN/CREATININE RATIO 21; CALCIUM 9.4 MG/DL (8.5-10.1); CARBON DIOXIDE 25 MMOL/L (21-32); CHLORIDE 103 MMOL/L (98-107); CHOLESTEROL 199 MG/DL (< 200); CREATININE SERUM 0.71 MG/DL (0.60-1.30); GFR ESTIMATED > 60; GLUCOSE 86 MG/DL (70-105); HDL CHOLESTEROL 64 MG/DL (40-60); SODIUM 139 MMOL/L (135-145); TOTAL PROTEIN 7.2 GM/DL (6.4-8.2); TRIGLYCERIDES 154 MG/DL (<150); VLDL CHOLESTEROL 31 MG/DL (5-40)
[2020-04-20 15:07] LABS: FREE T4 (FREE THYROXINE) 1.21 NG/DL (0.70-1.48)
== END ==
LOC: LAB 14:07
PROVIDERS: ATTEND Family Medicine
DX: E11.65 Type 2 diabetes mellitus with hyperglycemia (principal); E03.9 Hypothyroidism, unspecified; E78.2 Mixed hyperlipidemia
CPT/HCPCS: 36415; 80053; 80061; 83036; 84439; 84443; 85025

== ENCOUNTER → 2020-05-10 | Outpatient (CLI) | payer MEDICARE, MEDICAID ==
--- NOTE | 2020-05-10 14:27 | Diagnostic Imaging Report ---
INDICATION: Cough x2 months. EXAMINATION: PA and lateral chest. FINDINGS: Heart size and pulmonary vascularity are normal. Lungs are clear. There are no effusions or pneumothoraces. IMPRESSION: Negative chest. Dictated by: Dictated on workstation # [id number]
== END ==
LOC: RAD 12:53
PROVIDERS: ATTEND Family Medicine
DX: J44.0 Chronic obstructive pulmonary disease with (acute) lower respiratory infection (principal)
CPT/HCPCS: 71046

== ENCOUNTER → 2020-07-19 | Outpatient (CLI) | payer MEDICARE, MEDICAID ==
[2020-07-19 12:49] LABS: ALANINE AMINOTRANSFERASE 12 U/L (0-55); ALBUMIN 4.2 GM/DL (3.2-4.5); ALKALINE PHOSPHATASE 94 U/L (40-136); BILIRUBIN,TOTAL 0.4 MG/DL (0.1-1.0); BUN/CREATININE RATIO 24; CALCIUM 8.9 MG/DL (8.5-10.1); CARBON DIOXIDE 19 MMOL/L (21-32); CHLORIDE 104 MMOL/L (98-107); CREATININE SERUM 0.74 MG/DL (0.60-1.30); GFR ESTIMATED > 60; GLUCOSE 234 MG/DL (70-105); POTASSIUM 4.1 MMOL/L (3.6-5.0); SODIUM 136 MMOL/L (135-145); TOTAL PROTEIN 7.2 GM/DL (6.4-8.2)
== END ==
LOC: LAB 12:10
PROVIDERS: ATTEND Family Medicine
DX: E11.65 Type 2 diabetes mellitus with hyperglycemia (principal)
CPT/HCPCS: 36415; 80053; 83036

== ENCOUNTER → 2020-08-14 | Outpatient (CLI) | payer MEDICARE, MEDICAID ==
[2020-08-14 15:33] LABS: HEMATOCRIT 40 % (35-52); HEMOGLOBIN 13.6 g/dL (11.5-16.0); MEAN CORPUSCULAR HEMOGLOBIN 30 pg (25-34); MEAN CORPUSCULAR HGB CONC 34 g/dL (32-36); MEAN CORPUSCULAR VOLUME 89 fL (80-99); MEAN PLATELET VOLUME 10.1 fL (9.0-12.2); PLATELET COUNT 254 10^3/uL (130-400); WHITE BLOOD COUNT 13.1 10^3/uL (4.3-11.0)
--- NOTE | 2020-08-14 15:44 | Diagnostic Imaging Report ---
INDICATION: Diarrhea with right upper quadrant pain. FINDINGS: There is considerable gaseous distention of the colon with a few air-fluid levels which extend to the descending colon. There appears to be a large amount of stool within the descending colon to the anastomotic suture line at the rectum. The stomach and small bowel do not appear to be significantly distended. The cecum is estimated to be approximately 7 cm in diameter. The lung bases are clear. There is no pathologic calcification. There are surgical clips noted within the pelvis in the midline in the presacral region. IMPRESSION: Distended air/fluid levels noted within the colon with very little gas or stool in the distal colon near the anastomosis at the rectum. Concern is raised for a distal colonic obstruction. One might consider a CT scan of the abdomen and pelvis for further evaluation. Rectal contrast may be of benefit. Dictated by: Dictated on workstation # [id number]
[2020-08-14 15:45] LABS: ALBUMIN 4.4 GM/DL (3.2-4.5); CHLORIDE 103 MMOL/L (98-107); POTASSIUM 3.6 MMOL/L (3.6-5.0); SODIUM 137 MMOL/L (135-145)
--- NOTE | 2020-08-14 15:45 | Diagnostic Imaging Report ---
INDICATION: Diarrhea and cough. Wheezing. COMPARISON: 05/10/2020. FINDINGS: PA and lateral views. The lungs are well aerated and clear. There is no air trapping. The heart is not enlarged. No pulmonary edema or hilar adenopathy. No pneumothorax or pleural effusion. No bony abnormalities. IMPRESSION: Normal PA and lateral chest. Dictated by: Dictated on workstation # [id number]
[2020-08-14 15:46] LABS: AMYLASE 45 U/L (25-125); CALCIUM 9.5 MG/DL (8.5-10.1)
[2020-08-14 15:47] LABS: GLUCOSE 149 MG/DL (70-105); TOTAL PROTEIN 7.5 GM/DL (6.4-8.2)
[2020-08-14 15:48] LABS: CARBON DIOXIDE 25 MMOL/L (21-32)
[2020-08-14 15:49] LABS: BILIRUBIN,TOTAL 0.4 MG/DL (0.1-1.0)
[2020-08-14 15:51] LABS: ALKALINE PHOSPHATASE 100 U/L (40-136); CREATININE SERUM 0.73 MG/DL (0.60-1.30); GFR ESTIMATED > 60
[2020-08-14 15:52] LABS: BUN/CREATININE RATIO 19
[2020-08-14 15:54] LABS: ALANINE AMINOTRANSFERASE 18 U/L (0-55); LIPASE 23 U/L (8-78)
== END ==
LOC: RAD 15:06
PROVIDERS: ATTEND Family Medicine
DX: R10.11 Right upper quadrant pain (principal); R19.7 Diarrhea, unspecified; R05 Cough; R06.2 Wheezing
CPT/HCPCS: 36415; 71046; 74019; 80053; 82150; 83690; 85027; 86141

== ENCOUNTER → 2020-08-16 | Outpatient (CLI) | payer MEDICARE, MEDICAID ==
[~2020-08-16] MED LIST changes: +DIATRIZOATE MEGLUM/SODIUM 37% 120 ML (GASTROGRAFIN) PO ONE
--- NOTE | 2020-08-16 10:38 | Diagnostic Imaging Report ---
PROCEDURE: CT abdomen and pelvis without contrast. TECHNIQUE: Multiple contiguous axial images were obtained through the abdomen and pelvis without the use of intravenous contrast. Auto Exposure Controls were utilized during the CT exam to meet ALARA standards for radiation dose reduction. INDICATION: Left-sided abdominal pain and bloating with abdominal distention. Correlation is made with prior CT from 09/30/2015. The lung bases are clear. The liver is unremarkable. Gallbladder is surgically absent. No biliary ductal dilatation is seen. Pancreas and spleen are unremarkable. No adrenal mass is detected. No definite renal calculi or hydronephrosis is identified. Aorta is nonaneurysmal. Rectal contrast was administered. There are postsurgical changes at the rectosigmoid junction. The rectum, sigmoid colon as well as the descending and transverse colon opacified well with contrast. There is some retained stool throughout. No definite wall thickening is seen. There is moderate amount of retained stool throughout the right colon, which did not opacify well with contrast. No free fluid is seen. There is no fluid collection. Bladder is decompressed. Uterus appears to be surgically absent. IMPRESSION: There is a large amount of retained stool throughout the colon. Features are consistent with constipation. The study is otherwise unremarkable. Dictated by: Dictated on workstation # [id number]
== END ==
LOC: RAD 07:45
PROVIDERS: ATTEND Family Medicine
DX: R10.9 Unspecified abdominal pain (principal); R14.0 Abdominal distension (gaseous)
CPT/HCPCS: 74176

== ENCOUNTER → 2020-11-08 | Outpatient (CLI) | payer MEDICARE, MEDICAID ==
[~2020-11-08] MED LIST changes: -DIATRIZOATE MEGLUM/SODIUM 37% 120 ML (GASTROGRAFIN) PO ONE
[2020-11-08 13:25] LABS: BASOPHILS % (AUTO) 0 % (0-10); EOSINOPHILS % (AUTO) 0 % (0-10); HEMATOCRIT 43 % (35-52); HEMOGLOBIN 14.2 g/dL (11.5-16.0); LYMPHOCYTES # (AUTO) 2.1 10^3/uL (1.0-4.0); LYMPHOCYTES % (AUTO) 22 % (12-44); MEAN CORPUSCULAR HEMOGLOBIN 31 pg (25-34); MEAN CORPUSCULAR HGB CONC 33 g/dL (32-36); MEAN CORPUSCULAR VOLUME 92 fL (80-99); MEAN PLATELET VOLUME 11.2 fL (9.0-12.2); MONOCYTES # (AUTO) 0.6 10^3/uL (0.0-1.0); MONOCYTES % (AUTO) 6 % (0-12); NEUTROPHILS # (AUTO) 6.8 10^3/uL (1.8-7.8); NEUTROPHILS % (AUTO) 71 % (42-75); PLATELET COUNT 271 10^3/uL (130-400); WHITE BLOOD COUNT 9.6 10^3/uL (4.3-11.0)
[2020-11-08 13:51] LABS: ALBUMIN 3.8 GM/DL (3.2-4.5); BILIRUBIN,TOTAL 0.3 MG/DL (0.1-1.0); CALCIUM 9.3 MG/DL (8.5-10.1); CREATININE SERUM 1.13 MG/DL (0.60-1.30); POTASSIUM 3.7 MMOL/L (3.6-5.0); TOTAL PROTEIN 7.1 GM/DL (6.4-8.2)
== END ==
LOC: LAB 13:07
PROVIDERS: ATTEND Family Medicine
DX: E11.65 Type 2 diabetes mellitus with hyperglycemia (principal); I10 Essential (primary) hypertension; E78.2 Mixed hyperlipidemia
CPT/HCPCS: 36415; 80053; 80061; 83036; 85025

== ENCOUNTER → 2021-02-08 | Outpatient (CLI) | payer MEDICARE, MEDICAID ==
[~2021-02-08] MED LIST changes: -DULO60CA6 PO; +DULO60CA7 PO
[2021-02-08 14:35] LABS: ALBUMIN 4.1 GM/DL (3.2-4.5); POTASSIUM 3.7 MMOL/L (3.6-5.0)
[2021-02-08 14:36] LABS: CALCIUM 9.3 MG/DL (8.5-10.1)
[2021-02-08 14:37] LABS: TOTAL PROTEIN 6.7 GM/DL (6.4-8.2)
[2021-02-08 14:39] LABS: BILIRUBIN,TOTAL 0.2 MG/DL (0.1-1.0)
[2021-02-08 14:41] LABS: CREATININE SERUM 0.7 MG/DL (0.60-1.30)
[2021-02-08 15:05] LABS: FREE T4 (FREE THYROXINE) 1.23 NG/DL (0.70-1.48)
== END ==
LOC: LAB 13:49
PROVIDERS: ATTEND Family Medicine
DX: E11.65 Type 2 diabetes mellitus with hyperglycemia (principal); E03.4 Atrophy of thyroid (acquired); D51.9 Vitamin B12 deficiency anemia, unspecified; L65.0 Telogen effluvium
CPT/HCPCS: 36415; 80053; 82306; 82607; 83036; 84439; 84443

== ENCOUNTER → 2021-02-12 | Outpatient (CLI) | payer MEDICARE, MEDICAID ==
[2021-02-12 16:59] LABS: BASOPHILS % (AUTO) 1 % (0-10); EOSINOPHILS % (AUTO) 0 % (0-10); HEMATOCRIT 41 % (35-52); HEMOGLOBIN 13.3 g/dL (11.5-16.0); LYMPHOCYTES # (AUTO) 3.7 10^3/uL (1.0-4.0); LYMPHOCYTES % (AUTO) 51 % (12-44); MEAN CORPUSCULAR HEMOGLOBIN 30 pg (25-34); MEAN CORPUSCULAR HGB CONC 33 g/dL (32-36); MEAN CORPUSCULAR VOLUME 94 fL (80-99); MEAN PLATELET VOLUME 10.5 fL (9.0-12.2); MONOCYTES # (AUTO) 0.5 10^3/uL (0.0-1.0); MONOCYTES % (AUTO) 6 % (0-12); NEUTROPHILS % (AUTO) 42 % (42-75); PLATELET COUNT 247 10^3/uL (130-400); WHITE BLOOD COUNT 7.2 10^3/uL (4.3-11.0)
[2021-02-12 17:07] LABS: AMYLASE 73 U/L (25-125)
[2021-02-12 17:16] LABS: LIPASE 43 U/L (8-78)
== END ==
LOC: LAB 16:33
PROVIDERS: ATTEND Family Medicine
DX: D64.9 Anemia, unspecified (principal)
CPT/HCPCS: 36415; 82150; 82728; 83540; 83550; 83690; 85025

== ENCOUNTER → 2021-06-14 | Outpatient (CLI) | payer MEDICARE, MEDICAID ==
[~2021-06-14] MED LIST changes: +CYCL10TA25 PO
[2021-06-14 12:53] LABS: ALBUMIN 3.9 GM/DL (3.2-4.5); BILIRUBIN,TOTAL 0.3 MG/DL (0.1-1.0); CREATININE SERUM 0.68 MG/DL (0.60-1.30); POTASSIUM 4.4 MMOL/L (3.6-5.0); TOTAL PROTEIN 6.6 GM/DL (6.4-8.2)
== END ==
LOC: LAB 12:08
PROVIDERS: ATTEND Family Medicine
DX: E11.65 Type 2 diabetes mellitus with hyperglycemia (principal); I10 Essential (primary) hypertension; E78.2 Mixed hyperlipidemia; E03.9 Hypothyroidism, unspecified
CPT/HCPCS: 36415; 80053; 80061; 83036; 84439; 84443

== ENCOUNTER → 2021-10-01 | Outpatient (CLI) | payer MEDICARE, MEDICAID ==
[2021-10-01 12:05] LABS: ALBUMIN 3.9 GM/DL (3.2-4.5); BILIRUBIN,TOTAL 0.2 MG/DL (0.1-1.0); CREATININE SERUM 0.7 MG/DL (0.60-1.30); POTASSIUM 4.1 MMOL/L (3.6-5.0); TOTAL PROTEIN 6.5 GM/DL (6.4-8.2)
== END ==
LOC: LAB 11:15
PROVIDERS: ATTEND Family Medicine
DX: E11.65 Type 2 diabetes mellitus with hyperglycemia (principal); I10 Essential (primary) hypertension
CPT/HCPCS: 36415; 80053; 83036

== ENCOUNTER → 2022-01-07 | Outpatient (CLI) | payer MEDICARE, MEDICAID ==
[2022-01-07 09:05] LABS: BILIRUBIN,TOTAL 0.2 MG/DL (0.1-1.0); CALCIUM 9.3 MG/DL (8.5-10.1); CREATININE SERUM 0.72 MG/DL (0.60-1.30); POTASSIUM 3.8 MMOL/L (3.6-5.0); TOTAL PROTEIN 6.9 GM/DL (6.4-8.2)
== END ==
LOC: LAB 08:07
PROVIDERS: ATTEND Family Medicine
DX: E11.65 Type 2 diabetes mellitus with hyperglycemia (principal)
CPT/HCPCS: 36415; 80053; 83036

== ENCOUNTER → 2022-04-21 | Outpatient (CLI) | payer MEDICARE, MEDICAID ==
[2022-04-21 11:33] LABS: ALBUMIN 4.2 GM/DL (3.2-4.5); POTASSIUM 4.1 MMOL/L (3.6-5.0)
[2022-04-21 11:34] LABS: CALCIUM 9.1 MG/DL (8.5-10.1)
[2022-04-21 11:35] LABS: TOTAL PROTEIN 7.3 GM/DL (6.4-8.2)
[2022-04-21 11:37] LABS: BILIRUBIN,TOTAL 0.3 MG/DL (0.1-1.0)
[2022-04-21 11:39] LABS: CREATININE SERUM 0.9 MG/DL (0.60-1.30)
== END ==
LOC: LAB 10:54
PROVIDERS: ATTEND Nurse Practitioner Family
DX: E11.65 Type 2 diabetes mellitus with hyperglycemia (principal)
CPT/HCPCS: 36415; 80053; 83036

== ENCOUNTER → 2022-04-24 | Outpatient (CLI) | payer MEDICARE, MEDICAID ==
[2022-04-24 12:51] LABS: FREE T4 (FREE THYROXINE) 1.16 NG/DL (0.70-1.48)
== END ==
LOC: LAB 11:57
PROVIDERS: ATTEND Family Medicine
DX: E03.9 Hypothyroidism, unspecified (principal)
CPT/HCPCS: 36415; 84439; 84443

== ENCOUNTER → 2022-07-23 | Outpatient (CLI) | payer MEDICARE, MEDICAID ==
[2022-07-23 10:56] LABS: ALBUMIN 4.2 GM/DL (3.2-4.5); BILIRUBIN,TOTAL 0.2 MG/DL (0.1-1.0); CALCIUM 9.4 MG/DL (8.5-10.1); CREATININE SERUM 0.82 MG/DL (0.60-1.30); TOTAL PROTEIN 7.2 GM/DL (6.4-8.2)
== END ==
LOC: LAB 10:18
PROVIDERS: ATTEND Family Medicine
DX: E11.65 Type 2 diabetes mellitus with hyperglycemia (principal)
CPT/HCPCS: 36415; 80053; 83036

== ENCOUNTER → 2022-10-24 | Outpatient (CLI) | payer MEDICARE, MEDICAID | LOC: LAB 09:02 | PROVIDERS: ATTEND Family Medicine | DX: E11.649 Type 2 diabetes mellitus with hypoglycemia without coma (principal); Z79.4 Long term (current) use of insulin | CPT/HCPCS: 36415; 83036 ==

== ENCOUNTER → 2023-01-26 | Outpatient (CLI) | payer MEDICARE, MEDICAID ==
[~2023-01-26] MED LIST changes: -MECL-149 PO; +MECL-291 PO
[2023-01-26 09:54] LABS: BILIRUBIN,TOTAL 0.3 MG/DL (0.1-1.0); CALCIUM 8.9 MG/DL (8.5-10.1); CREATININE SERUM 0.74 MG/DL (0.60-1.30); POTASSIUM 4.5 MMOL/L (3.6-5.0); TOTAL PROTEIN 6.6 GM/DL (6.4-8.2)
[2023-01-26 10:15] LABS: FREE T4 (FREE THYROXINE) 1.09 NG/DL (0.70-1.48)
== END ==
LOC: LAB 09:09
PROVIDERS: ATTEND Family Medicine
DX: E11.649 Type 2 diabetes mellitus with hypoglycemia without coma (principal); Z79.4 Long term (current) use of insulin; E03.9 Hypothyroidism, unspecified; E78.2 Mixed hyperlipidemia
CPT/HCPCS: 36415; 80053; 80061; 82043; 83036; 84439; 84443

== ENCOUNTER → 2023-02-24 | Outpatient (CLI) | payer MEDICARE ==
--- NOTE | 2023-02-24 14:57 | Diagnostic Imaging Report ---
Indication: Routine screening. Comparison is made with prior mammogram from 05/22/2014. 2-D and 3-D bilateral screening mammography was performed with CAD. Both breasts are heterogeneously dense, limiting the sensitivity of mammography. The parenchymal pattern is stable. No mass or malignant-appearing microcalcifications are seen. Axillae are unremarkable. IMPRESSION: BI-RADS Category 1 No mammographic features suspicious for malignancy are identified. ACR BI-RADS Category 1: Negative. Result letter will be mailed to the patient. Note: At least 10% of breast cancer is not imaged by mammography. Dictated by: Dictated on workstation # [id number]
--- NOTE | 2023-02-24 15:22 | Diagnostic Imaging Report ---
EXAMINATION: Soft tissue ultrasound. TECHNIQUE: Multiple real-time grayscale images were obtained of the neck soft tissues in various projections. HISTORY: Posterior cervical lymphadenopathy COMPARISON: None available. FINDINGS: The right thyroid lobe measures 4.4 x 1.8 x 1.1 cm. The left thyroid lobe measures 4.2 x 1.5 x 1.5 cm. The isthmus measures 0.4 cm. The thyroid demonstrates heterogenous multicystic parenchyma. No suspicious thyroid nodules identified. No increased vascularity. Mildly enlarged lymph nodes within the posterior neck with the largest measuring 1.1 x 0.4 x 1.1 cm. IMPRESSION: Atrophy of the thyroid gland with heterogenous appearing parenchyma. No suspicious thyroid nodules. Mildly enlarged posterior cervical lymph nodes with the largest measuring 1.1 x 0.4 x 1.0 cm which are likely reactive lymph nodes. Consider follow-up surveillance soft tissue ultrasound. Dictated by: Dictated on workstation # [id number]
== END ==
LOC: RAD 13:21
PROVIDERS: ATTEND Family Medicine
DX: Z12.31 Encounter for screening mammogram for malignant neoplasm of breast (principal); E03.4 Atrophy of thyroid (acquired); R59.0 Localized enlarged lymph nodes
CPT/HCPCS: 76536; 77063; 77067